=== PATIENT | female | born 1955 | race Hispanic/Latino ===

== ENCOUNTER 2018-07-30 14:00 | Inpatient (IN) | payer OTHER ==
[2018-07-30] VITALS (15 sets, daily range): BP systolic 129–171; BP diastolic 57–80
[~2018-07-30] VITALS: Ht 152.4 cm; Wt 105.7 kg
--- NOTE | 2018-07-30 01:37 | NUR ---
LATE ENTRY. PATIENT RECEIVED INTUBATED AND SEDATED ON PROPOFOL AND FENTANYL. UPPER LIP SWELLING NOTED. NO FAMILY AT THE BEDSIDE AT THIS TIME. Addendum: 08/01/18 at 0140 by KENZIE SANDERS RN RN INCORRECT TIME 07/30/2018 1930 CORRECT TIME.
[~2018-07-30 14:00] MED LIST: ATOR40TA69 PO; INSU100I3 SQ; INSU100V12 SQ; LEVO50TA11 PO; LISI40TA4 PO; METF-526 PO; SUCCINYLCHOLINE CHLORIDE 20 MG/ML 10 ML VIAL IVP ONE
[2018-07-30] MEDS ORDERED: MAGNESIUM 2GM PREMIX 50ML 50 ML IV ONE (14:29)
[2018-07-30 14:41] LABS: BASOPHILS % (AUTO) 0.4 % (0.0-5.0); EOSINOPHILS % (AUTO) 1.1 % (0.0-8.0); HEMATOCRIT 40.4 % (36-48); MEAN CORPUSCULAR HGB CONC 33.7 g/dL (32.0-36.0); MEAN CORPUSCULAR VOLUME 83.2 fL (79-99); MONOCYTES % (AUTO) 3.2 % (3.0-13.0); NEUTROPHILS % (AUTO) 73.3 % (40.0-77.0); NUCLEATED RED BLOOD CELLS 0.1 % (0.0-0.19); PLATELET COUNT (AUTO) 258 K/uL (130-400); RED BLOOD CELL COUNT(AUTO) 4.85 MIL/uL (4.00-5.50); RED CELL DISTRIBUTION WIDTH 14.9 % (11.0-15.5); WHITE BLOOD COUNT (AUTO) 13.9 K/uL (4.8-10.8)
[2018-07-30] MEDS ORDERED: PROPOFOL 1000 MG/100 ML 100 ML IV ONE ×2 (14:44→16:33)
[2018-07-30] MEDS ORDERED: KETAMINE HCL 100 MG/ML 5ML VIAL IJ ONE (14:45)
[2018-07-30 14:46] LABS: ABG BASE EXCESS 0.2 mmol/L (-2.0-3.0); ABG HCO3 25.3 mmol/L (21.0-28.0); ABG OXYGEN SATURATION 96.7 % (95.0-99.0); ABG PCO2 43 mmHg (32-45)
[2018-07-30 14:47] LABS: INR 0.93 (0.85-1.15); PARTIAL THROMBOPLASTIN TIME 25.2 SEC (26.3-35.5); PROTHROMBIN TIME 9.8 SEC (9.6-11.6)
[2018-07-30 14:53] LABS: CREATININE 0.9 mg/dL (0.5-1.5); POTASSIUM 4.6 mmol/L (3.5-5.1)
[2018-07-30 14:57] LABS: ALBUMIN 2.9 g/dL (3.5-5.0); BILIRUBIN,TOTAL 0.4 mg/dL (0.2-1.0); TOTAL PROTEIN, SERUM 7.1 g/dL (6.0-8.3)
[2018-07-30] MEDS ORDERED: SODIUM CHLORIDE 0.9% 1000ML 1,000 ML IV ONE (14:57)
[2018-07-30] MEDS ORDERED: ONDANSETRON HCL 4 MG/2 ML VIAL IV PRN (15:30)
[2018-07-30] MEDS ORDERED: MORPHINE SULFATE 2 MG/ML 1ML SYG IV PRN (15:30)
[2018-07-30] MEDS ORDERED: MORPHINE SULFATE 4 MG/1ML SYG IV PRN (15:30)
[2018-07-30 15:40] LABS: APPEARANCE,URINE SL CLOUDY (CLEAR); BILIRUBIN,URINE NEGATIVE (NEGATIVE); COLOR,URINE YELLOW (YELLOW); GLUCOSE, URINE (UA) >=1000 mg/dL (NEGATIVE); KETONES,URINE NEGATIVE (NEGATIVE); LEUKOCYTE ESTERASE ,URINE NEGATIVE (NEGATIVE); NITRATE,URINE POSITIVE (NEGATIVE); OCCULT BLOOD,URINE MODERATE (NEGATIVE); PROTEIN,URINE >=300 mg/dL (NEGATIVE); UROBILINOGEN,URINE 0.2 mg/dL (0.2-1.0)
[2018-07-30 16:04] LABS: BACTERIA,URINE Moderate /HPF (None Seen)
[2018-07-30 16:05] LABS: SQUAMOUS EPITHELIAL CELL,UR Rare /HPF (0-2)
[2018-07-30 16:44] LABS: ABG BASE EXCESS 1.3 mmol/L (-2.0-3.0); ABG HCO3 25.3 mmol/L (21.0-28.0); ABG OXYGEN SATURATION 98.9 % (95.0-99.0); ABG PCO2 38 mmHg (32-45)
[2018-07-30] MEDS ORDERED: HYDRALAZINE HCL 20 MG/ML VIAL ONE (17:26)
[2018-07-30] MEDS ORDERED: ZOSYN 3.375GM+NS 50ML 50 ML IV ONE (17:38)
[2018-07-30] MEDS ORDERED: DiphenhydrAMINE HCL 50 MG/ML VIAL ONE (17:38)
[2018-07-30] MEDS ORDERED: METHYLPREDNISOLONE SOD SUCC 40MG/ML 1ML ONE (17:38)
[2018-07-30 18:25] LABS: CREATININE 0.9 mg/dL (0.5-1.5); POTASSIUM 5.2 mmol/L (3.5-5.1)
--- NOTE | 2018-07-30 18:45 | NUR ---
PATIENT ARRIVED TO UNIT.
[2018-07-30] MEDS: SODIUM CHLORIDE 0.9% 1000ML 1,000 ML IV SCH (19:21)
[2018-07-30] MEDS: METHYLPREDNISOLONE SOD SUCC 40MG/ML 1ML IVP SCH (19:24)
[2018-07-30] MEDS: DiphenhydrAMINE HCL 50 MG/ML VIAL IVP SCH (19:24)
[2018-07-30] MEDS ORDERED: PROPOFOL 1000 MG/100 ML IV PRN (19:30)
[2018-07-30] MEDS: PROPOFOL 1000 MG/100 ML 100 ML IV PRN (20:08)
[2018-07-30] MEDS: FAMOTIDINE/PF 20 MG/2 ML VIAL IV SCH (20:10)
[2018-07-30] MEDS: HEPARIN SODIUM 5000UNIT/ML 1ML VIAL SQ SCH (20:13)
[2018-07-30] MEDS: INSULIN GLARGINE 100 UNITS/ML 10 ML VIAL SQ SCH (20:15)
[2018-07-30] MEDS: HYDRALAZINE HCL 20 MG/ML VIAL IV PRN (20:42)
[2018-07-30] MEDS ORDERED: ZOSYN 3.375GM+NS 50ML 50 ML IV SCH (21:00)
[2018-07-30] MEDS ORDERED: DEXTROSE 50%-WATER 50 ML DISP.SYRIN IV PRN (21:45)
[2018-07-30] MEDS ORDERED: GLUCAGON 1MG KIT 1 MG ML IM PRN (21:45)
[2018-07-30 23:05] LABS: CREATININE 0.9 mg/dL (0.5-1.5); POTASSIUM 4.7 mmol/L (3.5-5.1)
[2018-07-30] MEDS: INSULIN HUMULIN R 100 UNIT/ML 3ML SQ SCH (23:31)
[2018-07-31] VITALS (35 sets, daily range): BP systolic 128–189; BP diastolic 53–105
[2018-07-31] MEDS: PROPOFOL 1000 MG/100 ML 100 ML IV PRN ×5 (00:36→19:21)
[2018-07-31] MEDS: ZOSYN 3.375GM+NS 50ML 50 ML IV SCH ×3 (02:19→17:24)
[2018-07-31] MEDS: DiphenhydrAMINE HCL 50 MG/ML VIAL IVP SCH ×3 (02:36→19:22)
[2018-07-31] MEDS: METHYLPREDNISOLONE SOD SUCC 40MG/ML 1ML IVP SCH ×3 (02:36→19:22)
[2018-07-31 03:41] LABS: BASOPHILS % (AUTO) 0.2 % (0.0-5.0); HEMATOCRIT 36.9 % (36-48); LYMPHOCYTES % (AUTO) 11.3 % (21.0-51.0); MEAN CORPUSCULAR HEMOGLOBIN 26.7 pg (27.0-33.0); MEAN CORPUSCULAR HGB CONC 32.3 g/dL (32.0-36.0); MEAN CORPUSCULAR VOLUME 82.7 fL (79-99); MONOCYTES % (AUTO) 1.4 % (3.0-13.0); NEUTROPHILS % (AUTO) 87.1 % (40.0-77.0); PLATELET COUNT (AUTO) 252 K/uL (130-400); RED BLOOD CELL COUNT(AUTO) 4.45 MIL/uL (4.00-5.50); RED CELL DISTRIBUTION WIDTH 14.7 % (11.0-15.5); WHITE BLOOD COUNT (AUTO) 11.4 K/uL (4.8-10.8)
[2018-07-31 03:46] LABS: POTASSIUM 4.2 mmol/L (3.5-5.1)
[2018-07-31] MEDS: SODIUM CHLORIDE 0.9% 1000ML 1,000 ML IV SCH ×3 (04:21→23:16)
[2018-07-31 04:52] LABS: ABG BASE EXCESS -1.3 mmol/L (-2.0-3.0); ABG HCO3 20.1 mmol/L (21.0-28.0); ABG OXYGEN SATURATION 97.8 % (95.0-99.0); ABG PCO2 26 mmHg (32-45)
[2018-07-31] MEDS: INSULIN HUMULIN R 100 UNIT/ML 3ML SQ SCH ×3 (06:16→17:43)
[2018-07-31] MEDS: FAMOTIDINE/PF 20 MG/2 ML VIAL IV SCH ×2 (08:16→20:45)
[2018-07-31] MEDS: HEPARIN SODIUM 5000UNIT/ML 1ML VIAL SQ SCH ×2 (08:23→20:49)
[2018-07-31] MEDS ORDERED: PENT400T12 PO (09:09)
--- NOTE | 2018-07-31 13:53 | NUR ---
DC PLAN VISITED WITH PATIENT. PATIENT LIVES WITH SPOUSE. INDEPENDENT ABLE TO PERFORM ADL'S. PATIENT HAS NO SERVICES OR DME'S. USES A CANE AT HOME. FEELS SAFE TO RETURN HOME. AT THIS TIME PATIENT IS VENTED AND IN CRITICAL CONDITION. Addendum: 07/31/18 at 1354 by RICARDO VILLARREAL RN CM Amended: Links added.
--- NOTE | 2018-07-31 15:00 | NUR ---
PROPOFOL IV TUBING CHANGED.
[2018-07-31] MEDS: INSULIN GLARGINE 100 UNITS/ML 10 ML VIAL SQ SCH (20:50)
[2018-08-01] VITALS (29 sets, daily range): BP systolic 130–221; BP diastolic 47–90
[2018-08-01] MEDS: INSULIN HUMULIN R 100 UNIT/ML 3ML SQ SCH ×5 (00:26→23:41)
[2018-08-01] MEDS: PROPOFOL 1000 MG/100 ML 100 ML IV PRN ×6 (01:23→23:45)
[2018-08-01] MEDS: ZOSYN 3.375GM+NS 50ML 50 ML IV SCH ×3 (01:24→17:53)
--- NOTE | 2018-08-01 01:41 | NUR ---
STATUS PATIENT TURNED, BATHED AND REPOSITIONED. TOLERATED ACTIVITY WELL. AWAKENS WITH ACTIVITY. PROPOFOL TUBING CHANGED.
[2018-08-01] MEDS: HYDRALAZINE HCL 20 MG/ML VIAL IV PRN ×3 (02:12→21:08)
[2018-08-01] MEDS: METHYLPREDNISOLONE SOD SUCC 40MG/ML 1ML IVP SCH ×3 (03:08→19:50)
[2018-08-01] MEDS: DiphenhydrAMINE HCL 50 MG/ML VIAL IVP SCH ×3 (03:08→19:50)
[2018-08-01 04:03] LABS: HEMATOCRIT 36.1 % (36-48); MEAN CORPUSCULAR HEMOGLOBIN 27.9 pg (27.0-33.0); MEAN CORPUSCULAR HGB CONC 33.8 g/dL (32.0-36.0); MEAN CORPUSCULAR VOLUME 82.7 fL (79-99); PLATELET COUNT (AUTO) 251 K/uL (130-400); RED BLOOD CELL COUNT(AUTO) 4.36 MIL/uL (4.00-5.50); RED CELL DISTRIBUTION WIDTH 15.3 % (11.0-15.5); WHITE BLOOD COUNT (AUTO) 19.4 K/uL (4.8-10.8)
[2018-08-01 04:07] LABS: CREATININE 1.2 mg/dL (0.5-1.5); POTASSIUM 4.1 mmol/L (3.5-5.1)
[2018-08-01 04:59] LABS: ABG BASE EXCESS -3.9 mmol/L (-2.0-3.0); ABG HCO3 17.6 mmol/L (21.0-28.0); ABG OXYGEN SATURATION 97.2 % (95.0-99.0); ABG PCO2 24 mmHg (32-45)
[2018-08-01] MEDS: SODIUM CHLORIDE 0.9% 1000ML 1,000 ML IV SCH ×2 (08:01→17:27)
[2018-08-01] MEDS: FAMOTIDINE/PF 20 MG/2 ML VIAL IV SCH ×2 (08:01→19:49)
[2018-08-01] MEDS: HEPARIN SODIUM 5000UNIT/ML 1ML VIAL SQ SCH ×2 (08:03→19:50)
--- NOTE | 2018-08-01 08:30 | NUR ---
Patient was weaned off sedation and placed CPAP 10/5 with FIO2 @30% at 0830. Leak test revealed that patient was still able to take in tidal volumes of 4 to 500, which indicates that there is still swelling around airway. Patient's vital signs were tolerating well but patient was very anxious. Patient was given 2mg of morphine for throat pain. Patient was also restarted on small dose of fentanyl to help with throat discomfort. Despite these interventions patient is still anxious trying to remove her mittens and et tube. Et tube will not be dc'd at this time because of patients swelling. Patient was placed back on assist control settings and sedation at 0944.
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
[2018-08-01] MEDS: FENTANYL 2500MCG+NS 250ML 250 ML IV PRN (19:26)
[2018-08-01] MEDS: INSULIN GLARGINE 100 UNITS/ML 10 ML VIAL SQ SCH (19:56)
[2018-08-02] VITALS (39 sets, daily range): BP systolic 120–194; BP diastolic 27–99
[2018-08-02] MEDS: ZOSYN 3.375GM+NS 50ML 50 ML IV SCH ×3 (02:13→16:54)
[2018-08-02] MEDS: METHYLPREDNISOLONE SOD SUCC 40MG/ML 1ML IVP SCH ×2 (02:41→10:06)
[2018-08-02] MEDS: DiphenhydrAMINE HCL 50 MG/ML VIAL IVP SCH ×2 (02:41→10:06)
[2018-08-02 03:56] LABS: BASOPHILS % (AUTO) 0.1 % (0.0-5.0); HEMATOCRIT 35.1 % (36-48); LYMPHOCYTES % (AUTO) 7.4 % (21.0-51.0); MEAN CORPUSCULAR HEMOGLOBIN 27.5 pg (27.0-33.0); MEAN CORPUSCULAR VOLUME 83.5 fL (79-99); NEUTROPHILS % (AUTO) 89.5 % (40.0-77.0); NUCLEATED RED BLOOD CELLS 0.1 % (0.0-0.19); PLATELET COUNT (AUTO) 252 K/uL (130-400); RED CELL DISTRIBUTION WIDTH 15.8 % (11.0-15.5); WHITE BLOOD COUNT (AUTO) 15.6 K/uL (4.8-10.8)
[2018-08-02 04:07] LABS: CREATININE 1.1 mg/dL (0.5-1.5); POTASSIUM 3.8 mmol/L (3.5-5.1)
[2018-08-02 04:15] LABS: HEMOGLOBIN A1C 10.9 % (4.0-6.0)
[2018-08-02] MEDS: HYDRALAZINE HCL 20 MG/ML VIAL IV PRN ×2 (04:31→13:10)
[2018-08-02] MEDS: INSULIN HUMULIN R 100 UNIT/ML 3ML SQ SCH ×3 (05:15→17:51)
[2018-08-02] MEDS: PROPOFOL 1000 MG/100 ML 100 ML IV PRN ×4 (07:54→19:40)
[2018-08-02] MEDS: FAMOTIDINE/PF 20 MG/2 ML VIAL IV SCH ×2 (07:54→20:55)
[2018-08-02] MEDS: HEPARIN SODIUM 5000UNIT/ML 1ML VIAL SQ SCH ×2 (08:32→20:57)
[2018-08-02] MEDS ORDERED: PROPOFOL 10 MG/ML 20ML VIAL IV ONE (12:34)
[2018-08-02] MEDS ORDERED: EPHEDRINE SULFATE 50 MG/ML AMPULE ONE (12:34)
--- NOTE | 2018-08-02 12:43 | NUR ---
ENDOSCOPY TEAM AT BEDSIDE.
--- NOTE | 2018-08-02 15:15 | NUR ---
BRONCHOSCOPY TEAM SETTING UP AT BEDSIDE. DR. PARISI AT BEDSIDE. MD SPOKE TO DAUGHTER ABOUT PROCEDURE.
[2018-08-02] MEDS: MIDAZOLAM 100MG-0.9% NS 100ML 100 ML IV PRN (17:00)
--- NOTE | 2018-08-02 18:40 | NUR ---
DR. DENTON VISITED AND ASSESSED PATIENT. UPDATED ON PATIENT LABS AND STATUS.
[2018-08-02] MEDS ORDERED: ZOSYN 3.375GM+NS 50ML 50 ML IV SCH (19:30)
--- NOTE | 2018-08-02 19:30 | NUR ---
ASSESSMENT PT INTUBATED WITH 7.5, 18 AT THE LIP, VENT SETTING AC-14-40%-450-PEEP 8. SEDATED WITH FENTANYL, PROPOFOL AND VERSED, INFUSING WITHOUT DIFFICULTY. FAMILY AT BEDSIDE. 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 OGT TO L.I.W.S WITH GREEN LIQUID NOTED, VENEGAS CATH 18FR SANTY/GREEN COLOR WITH SEDIMENT TO BSD. SCD IN PLACE. PARAMETER ON BEDSIDE MONITOR REVIEWED AND ADJUSTED, CALLBELL REVIEWED AND WITHIN REACH. WHITE BOARD UP-DATED. ASSESSMENT COMPLETED, SEE FLOW SHEET.
[2018-08-02] MEDS: DEXAMETHASONE SOD PHOSPHATE 4 MG/ML 1ML VIAL IVP SCH (20:55)
[2018-08-02] MEDS: LACTATED RINGERS 1000ML 1,000 ML IV SCH (20:55)
[2018-08-02] MEDS: INSULIN GLARGINE 100 UNITS/ML 10 ML VIAL SQ SCH (20:56)
[2018-08-02] MEDS ORDERED: DEXAMETHASONE SOD PHOSPHATE 4 MG/ML 1ML VIAL IVP SCH (21:00)
--- NOTE | 2018-08-02 21:00 | NUR ---
IV LINES IV LINES CHANGED
[2018-08-02] MEDS: FENTANYL 2500MCG+NS 250ML 250 ML IV PRN (21:03)
--- NOTE | 2018-08-02 23:00 | NUR ---
ASSESSMENT PT INTUBATED WITH 7.5, 18 AT THE LIP, VENT SETTING AC-14-30%-450-PEEP 8. SEDATED WITH FENTANYL, PROPOFOL AND VERSED, INFUSING WITHOUT DIFFICULTY. ANTHONY VANN AT BEDSIDE. 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 OGT TO L.I.W.S WITH GREEN LIQUID NOTED, VENEGAS CATH 18FR SANTY/GREEN COLOR WITH SEDIMENT TO BSD. SCD IN PLACE BILATERALLY. CALLBELL WITHIN REACH. WHITE BOARD UP-DATED. ASSESSMENT COMPLETED, SEE FLOW SHEET.
[2018-08-03] VITALS (27 sets, daily range): BP systolic 125–190; BP diastolic 40–72
[2018-08-03] MEDS: ZOSYN 3.375GM+NS 50ML 50 ML IV SCH ×3 (02:04→18:11)
[2018-08-03 03:29] LABS: HEMATOCRIT 34.7 % (36-48); MEAN CORPUSCULAR HEMOGLOBIN 28.4 pg (27.0-33.0); MEAN CORPUSCULAR HGB CONC 33.7 g/dL (32.0-36.0); MEAN CORPUSCULAR VOLUME 84.1 fL (79-99); PLATELET COUNT (AUTO) 236 K/uL (130-400); RED BLOOD CELL COUNT(AUTO) 4.12 MIL/uL (4.00-5.50); RED CELL DISTRIBUTION WIDTH 15.6 % (11.0-15.5); WHITE BLOOD COUNT (AUTO) 10.1 K/uL (4.8-10.8)
[2018-08-03 03:42] LABS: CREATININE 0.9 mg/dL (0.5-1.5); MAGNESIUM 2.1 mg/dL (1.80-2.40); PHOSPHORUS 3.7 mg/dL (2.5-4.9); POTASSIUM 4.1 mmol/L (3.5-5.1)
[2018-08-03 03:43] LABS: INR 0.94 (0.85-1.15); PARTIAL THROMBOPLASTIN TIME 27.5 SEC (26.3-35.5); PROTHROMBIN TIME 9.9 SEC (9.6-11.6)
--- NOTE | 2018-08-03 04:05 | NUR ---
ASSESSMENT PT INTUBATED WITH 7.5, 18 AT THE LIP, VENT SETTING AC-14-30%-450-PEEP 8. SEDATED WITH FENTANYL, PROPOFOL, VERSED AND INFUSING WITHOUT DIFFICULTY. ANTHONY VANN AT BEDSIDE. 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 OGT TO L.I.W.S WITH GREEN LIQUID NOTED, VENEGAS CATH 18FR SANTY/GREEN COLOR WITH SEDIMENT TO BSD. SCD IN PLACE BILATERALLY. CALLBELL WITHIN REACH. ASSESSMENT COMPLETED, SEE FLOW SHEET.
--- NOTE | 2018-08-03 06:00 | NUR ---
PROPOFOL TUBING CHANGED
[2018-08-03] MEDS: LACTATED RINGERS 1000ML 1,000 ML IV SCH ×2 (06:18→16:40)
[2018-08-03] MEDS: INSULIN HUMULIN R 100 UNIT/ML 3ML SQ SCH ×4 (06:18→18:11)
[2018-08-03] MEDS: MIDAZOLAM 100MG-0.9% NS 100ML 100 ML IV PRN ×2 (06:19→20:20)
[2018-08-03] MEDS: PROPOFOL 1000 MG/100 ML 100 ML IV PRN ×2 (06:24→20:19)
[2018-08-03] MEDS: BUDESONIDE 0.5 MG/2 ML INH IH SCH ×2 (06:45→18:18)
[2018-08-03] MEDS: FAMOTIDINE/PF 20 MG/2 ML VIAL IV SCH ×2 (08:15→21:09)
[2018-08-03] MEDS: DEXAMETHASONE SOD PHOSPHATE 4 MG/ML 1ML VIAL IVP SCH ×2 (08:15→21:10)
[2018-08-03] MEDS: HYDRALAZINE HCL 20 MG/ML VIAL IV PRN ×3 (08:16→18:36)
[2018-08-03] MEDS: HEPARIN SODIUM 5000UNIT/ML 1ML VIAL SQ SCH ×2 (08:17→21:16)
--- NOTE | 2018-08-03 11:49 | NUR ---
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 COSME Shabazz obtaining consent for PICC line placement. No bowel movements recorded. Recommendations: Continue NPO until medically feasible to advance diet. TPN recommendations via PICC line. Clinimix 07/24 (premixed): 65ml/hr with intralipid infusion every other day --. 10ml Adult MVI Recommend monitoring lipid panel and LFTs TPN to provide 1560kcals, 78g PRO, Intralipid to provide 500kcals. -- Addendum: 08/03/18 at [address]REZ RD RD Amended: Links added.
[2018-08-03] MEDS: ALBUTEROL SULFATE 0.083% 2.5 MG/3 ML INH IH SCH ×3 (14:14→21:17)
[2018-08-03] MEDS: M V I IV SCH (16:41)
[2018-08-03] MEDS: CLINIMIX E IV SCH (16:41)
[2018-08-03] MEDS: FENTANYL 2500MCG+NS 250ML 250 ML IV PRN (18:16)
--- NOTE | 2018-08-03 19:34 | NUR ---
ASSESSMENT REPORT RECEIVED . PT INTUBATED WITH 7.5, 24 CM AT THE LIP, VENT SETTING AC RATE 14/TV 450/PEEP 8/FIO2 30%. SEDATED WITH FENTANYL, PROPOFOL, VERSED AND INFUSING THROUGH PICC LINE RUE. LR AND TPN INFUSING . PUPILS: LEFT 4MM FIXED. 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 OGT TO L.I.W.S WITH GREEN LIQUID NOTED, VENEGAS CATH 18FR SANTY/GREEN COLOR WITH SEDIMENT TO BSD. SCD IN PLACE BILATERALLY. PEDAL AND RADIAL PULSES WEAK -CONFIRMED WITH HAND HELD DOPPLER. AT BEDSIDE. CALL GODOY WITHIN REACH. ASSESSMENT COMPLETED, SEE FLOW SHEET.
[2018-08-03] MEDS: INSULIN GLARGINE 100 UNITS/ML 10 ML VIAL SQ SCH (21:29)
--- NOTE | 2018-08-03 22:16 | NUR ---
APRESOLINE 10 MG IV GIVEN FOR BP 169/96 Addendum: 08/04/18 at 0610 by SILVER VARGHESE RN RN WRONG PATIENT
--- NOTE | 2018-08-03 22:48 | NUR ---
BP IMPROVEMENT 140/73 Addendum: 08/04/18 at 0610 by SILVER VARGHESE RN RN WRONG PATIENT
--- NOTE | 2018-08-03 23:00 | NUR ---
PATIENT RE-ASSESSED, RESTING QUIETLY . INTUBATED AND SEDATED. RADIAL AND PEDAL PULSES WEAK PALPABLE. EXTREMITIES X 4 ELEVATED WITH PILLOWS. EDEMA AND BLISTERS NOTED TO L ARM . AT BEDSIDE.
[2018-08-04] VITALS (28 sets, daily range): BP systolic 137–168; BP diastolic 49–74
[2018-08-04] MEDS: INSULIN HUMULIN R 100 UNIT/ML 3ML SQ SCH ×3 (00:38→08:27)
[2018-08-04] MEDS: HYDRALAZINE HCL 20 MG/ML VIAL IV PRN (01:37)
[2018-08-04] MEDS: ZOSYN 3.375GM+NS 50ML 50 ML IV SCH ×3 (01:37→17:39)
--- NOTE | 2018-08-04 01:37 | NUR ---
APRESOLINE 10 MG IV GIVEN FOR BP 172/65
[2018-08-04] MEDS: LACTATED RINGERS 1000ML 1,000 ML IV SCH ×5 (01:38→20:13)
[2018-08-04] MEDS: PROPOFOL 1000 MG/100 ML 100 ML IV PRN ×3 (01:54→19:58)
[2018-08-04] MEDS: ALBUTEROL SULFATE 0.083% 2.5 MG/3 ML INH IH SCH ×5 (01:58→18:17)
--- NOTE | 2018-08-04 02:00 | NUR ---
BP IMPROVEMENT 150/49.
--- NOTE | 2018-08-04 03:00 | NUR ---
PATIENT RE-ASSESSED, RESTING QUIETLY . INTUBATED AND SEDATED. RADIAL AND PEDAL PULSES X 4 CONFIRMED WITH DOPPLER. X 4 EXTREMITIES ELEVATED WITH PILLOWS. BLISTERS NOTED TO L ARM . AT BEDSIDE.
[2018-08-04 05:00] LABS: HEMATOCRIT 36.5 % (36-48); LYMPHOCYTES % (AUTO) 5.4 % (21.0-51.0); MEAN CORPUSCULAR HEMOGLOBIN 26.8 pg (27.0-33.0); MEAN CORPUSCULAR HGB CONC 31.8 g/dL (32.0-36.0); MEAN CORPUSCULAR VOLUME 84.3 fL (79-99); MONOCYTES % (AUTO) 2.2 % (3.0-13.0); NEUTROPHILS % (AUTO) 92.4 % (40.0-77.0); PLATELET COUNT (AUTO) 244 K/uL (130-400); RED BLOOD CELL COUNT(AUTO) 4.32 MIL/uL (4.00-5.50); RED CELL DISTRIBUTION WIDTH 15.9 % (11.0-15.5)
[2018-08-04 05:17] LABS: INR 0.91 (0.85-1.15); PARTIAL THROMBOPLASTIN TIME 27.1 SEC (26.3-35.5); PROTHROMBIN TIME 9.6 SEC (9.6-11.6)
[2018-08-04 05:34] LABS: ALBUMIN 1.9 g/dL (3.5-5.0); BILIRUBIN,TOTAL 0.2 mg/dL (0.2-1.0); MAGNESIUM 2.3 mg/dL (1.80-2.40); POTASSIUM 4.2 mmol/L (3.5-5.1); TOTAL PROTEIN, SERUM 5.6 g/dL (6.0-8.3)
[2018-08-04] MEDS: BUDESONIDE 0.5 MG/2 ML INH IH SCH ×2 (07:53→18:17)
[2018-08-04] MEDS: DEXAMETHASONE SOD PHOSPHATE 4 MG/ML 1ML VIAL IVP SCH ×2 (08:26→20:27)
[2018-08-04] MEDS: FAMOTIDINE/PF 20 MG/2 ML VIAL IV SCH ×2 (08:26→20:27)
[2018-08-04] MEDS: HEPARIN SODIUM 5000UNIT/ML 1ML VIAL SQ SCH ×2 (08:28→20:29)
[2018-08-04] MEDS ORDERED: LACTATED RINGERS 1000ML IV ONE (10:45)
[2018-08-04] MEDS: INSULIN REGULAR, HUMAN 3ML 100 UNIT in SODIUM CHLORIDE 0.9% 99 ML IV PRN ×2 (11:40)
[2018-08-04] MEDS ORDERED: INSULIN HUMULIN R 100 UNIT/ML 3ML SQ SCH (12:00)
[2018-08-04] MEDS: M V I IV SCH (16:35)
[2018-08-04] MEDS: CLINIMIX E IV SCH (16:35)
[2018-08-04] MEDS: FENTANYL 2500MCG+NS 250ML 250 ML IV PRN (18:13)
[2018-08-04] MEDS: MIDAZOLAM 100MG-0.9% NS 100ML 100 ML IV PRN (18:13)
--- NOTE | 2018-08-04 19:24 | NUR ---
ASSESSMENT REPORT RECEIVED . PT INTUBATED WITH 7.5, 24 CM AT THE LIP, VENT SETTING AC RATE 14/TV 450/PEEP 8/FIO2 30%. SEDATED WITH FENTANYL, PROPOFOL, VERSED AND INFUSING THROUGH PICC LINE RUE. LR AND TPN AND INSULIN DRIP INFUSING . PUPILS: LEFT 4MM FIXED. 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 OGT TO L.I.W.S WITH GREEN LIQUID NOTED, VENEGAS CATH 18FR SANTY/GREEN COLOR WITH SEDIMENT TO BSD. SCD IN PLACE BILATERALLY. PEDAL AND RADIAL PULSES WEAK -CONFIRMED WITH HAND HELD DOPPLER. AT BEDSIDE. TEMPERATURE 95.9 WARMING BLANKET APPLIED. CALL GODOY WITHIN REACH. ASSESSMENT COMPLETED, SEE FLOW SHEET.
[2018-08-04] MEDS: INSULIN GLARGINE 100 UNITS/ML 10 ML VIAL SQ SCH (20:28)
[2018-08-05] VITALS (40 sets, daily range): BP systolic 58–226; BP diastolic 23–108
[2018-08-05] MEDS: ALBUTEROL SULFATE 0.083% 2.5 MG/3 ML INH IH SCH ×5 (00:11→23:06)
[2018-08-05] MEDS: ZOSYN 3.375GM+NS 50ML 50 ML IV SCH ×3 (01:25→19:50)
[2018-08-05] MEDS: PROPOFOL 1000 MG/100 ML 100 ML IV PRN ×3 (01:25→22:44)
[2018-08-05] MEDS: HYDRALAZINE HCL 20 MG/ML VIAL IV PRN ×3 (01:34→22:43)
--- NOTE | 2018-08-05 01:34 | NUR ---
BP 172/67, APRESOLINE 10 MG IV GIVEN
--- NOTE | 2018-08-05 03:39 | NUR ---
BP IMPROVED 143/59
[2018-08-05 04:18] LABS: BASOPHILS % (AUTO) 0.3 % (0.0-5.0); HEMATOCRIT 33.5 % (36-48); LYMPHOCYTES % (AUTO) 10.3 % (21.0-51.0); MEAN CORPUSCULAR HGB CONC 33.3 g/dL (32.0-36.0); MEAN CORPUSCULAR VOLUME 84.1 fL (79-99); NEUTROPHILS % (AUTO) 86.4 % (40.0-77.0); NUCLEATED RED BLOOD CELLS 0.1 % (0.0-0.19); PLATELET COUNT (AUTO) 208 K/uL (130-400); RED BLOOD CELL COUNT(AUTO) 3.98 MIL/uL (4.00-5.50); RED CELL DISTRIBUTION WIDTH 15.5 % (11.0-15.5); WHITE BLOOD COUNT (AUTO) 7.7 K/uL (4.8-10.8)
[2018-08-05 04:36] LABS: ALBUMIN 1.6 g/dL (3.5-5.0); BILIRUBIN,TOTAL 0.2 mg/dL (0.2-1.0); CREATININE 0.8 mg/dL (0.5-1.5); PHOSPHORUS 2.8 mg/dL (2.5-4.9); POTASSIUM 3.9 mmol/L (3.5-5.1); TOTAL PROTEIN, SERUM 4.8 g/dL (6.0-8.3)
[2018-08-05] MEDS: LACTATED RINGERS 1000ML 1,000 ML IV SCH ×2 (05:59→15:57)
[2018-08-05] MEDS: BUDESONIDE 0.5 MG/2 ML INH IH SCH ×2 (07:19→18:37)
[2018-08-05] MEDS: FAMOTIDINE/PF 20 MG/2 ML VIAL IV SCH ×2 (08:24→20:21)
[2018-08-05] MEDS: DEXAMETHASONE SOD PHOSPHATE 4 MG/ML 1ML VIAL IVP SCH ×2 (08:24→20:21)
[2018-08-05] MEDS: HEPARIN SODIUM 5000UNIT/ML 1ML VIAL SQ SCH ×2 (08:25→20:23)
--- NOTE | 2018-08-05 09:30 | NUR ---
SPOUSE: HAS REMAINED AT BSD ALL NIGHT - THRU MANAGER OF ENGINEERING ADVISED OF CURRENT STATUS AND PLAN OF CARE. QUESTIONS ANSWERED.
--- NOTE | 2018-08-05 12:00 | NUR ---
RESTLESS: EYES OPEN WITHOUT TRACKING - EYES ROLLED BACK AND NECK HYPEREXTENDED - MOVES ARMS AND LEGS WEAKLY BUT NOT TO COMMAND - NO ATTEMPT TO TRACK OR FOLLOW COMMANDS OF FAMILY MEMBERS EITHER.
[2018-08-05] MEDS: FAT EMULSIONS 20% 250ML 250 ML IV SCH (12:14)
--- NOTE | 2018-08-05 14:22 | NUR ---
Nutrition f/u: Pt continues NPO, s/p PICC line placed. Recommend continuation of Alternate means of nutrition via PICC line. TPN @ 65 ml/hr. RD to continue monitoring pt's nutritional status. Consult received for TF recommendation. As per norma Pritchett feeds order made by Dr Lewis and will closely monitor tolerance. TF recommendations made and left in pt's chart. Addendum: 08/05/18 at 1435 [address]Z [address] RD Amended: Links added.
--- NOTE | 2018-08-05 15:55 | NUR ---
CPAP: ONLY TOLERATED 20 MINUTES DUE TO HTN - NOTE ON V/S RECORD B/P HAS BEEN DIFFICULT DIFFICULT TO ASCERTAIN B/C ONE SITE SHOWS HTN THEN RECHECK IS UNABLE TO ASCERTAIN -SO SITE CHANGED AND WILL GET A READING FOLLOWED BY ONE THAT DOES NOT NUCLEAR FUELS RESEARCH ENGINEER - TREATED FOR HTN WITH APRESOLINE AND RT NOTIFIED TO STOP CPAP.
--- NOTE | 2018-08-05 18:43 | NUR ---
At this time I did check for air leak I disinflated the ETT cuff and there is a good leak good air flow. Addendum: 08/05/18 at 1850 by CHAY DIAL RT Amended: Links added.
--- NOTE | 2018-08-05 18:45 | NUR ---
ETT AIR LEAK TEST BY RT. NOTES AIR FLOW.
[2018-08-05] MEDS: CLINIMIX E IV SCH (19:00)
[2018-08-05] MEDS: M V I IV SCH (19:00)
[2018-08-05] MEDS ORDERED: [UNRECOGNIZED DRUG - MIXTURE] IV ONE ×7 (20:00)
[2018-08-05] MEDS: INSULIN GLARGINE 100 UNITS/ML 10 ML VIAL SQ SCH (20:24)
[2018-08-06] VITALS (28 sets, daily range): BP systolic 133–188; BP diastolic 52–85
[2018-08-06] MEDS: FENTANYL 2500MCG+NS 250ML 250 ML IV PRN (00:05)
[2018-08-06] MEDS: ZOSYN 3.375GM+NS 50ML 50 ML IV SCH ×3 (01:11→18:21)
[2018-08-06] MEDS: LACTATED RINGERS 1000ML 1,000 ML IV SCH ×3 (02:03→21:49)
[2018-08-06 05:21] LABS: BASOPHILS % (AUTO) 0.5 % (0.0-5.0); EOSINOPHILS % (AUTO) 0.1 % (0.0-8.0); HEMATOCRIT 37.7 % (36-48); LYMPHOCYTES % (AUTO) 11.1 % (21.0-51.0); MEAN CORPUSCULAR HEMOGLOBIN 27.3 pg (27.0-33.0); MEAN CORPUSCULAR HGB CONC 32.2 g/dL (32.0-36.0); MEAN CORPUSCULAR VOLUME 84.9 fL (79-99); MONOCYTES % (AUTO) 7.2 % (3.0-13.0); NEUTROPHILS % (AUTO) 81.1 % (40.0-77.0); PLATELET COUNT (AUTO) 304 K/uL (130-400); RED BLOOD CELL COUNT(AUTO) 4.44 MIL/uL (4.00-5.50); RED CELL DISTRIBUTION WIDTH 15.8 % (11.0-15.5); WHITE BLOOD COUNT (AUTO) 15.2 K/uL (4.8-10.8)
[2018-08-06 05:28] LABS: CREATININE 0.9 mg/dL (0.5-1.5); POTASSIUM 4.3 mmol/L (3.5-5.1)
[2018-08-06] MEDS: HYDRALAZINE HCL 20 MG/ML VIAL IV PRN ×2 (06:16→16:39)
[2018-08-06] MEDS: BUDESONIDE 0.5 MG/2 ML INH IH SCH ×2 (06:30→18:43)
[2018-08-06] MEDS: ALBUTEROL SULFATE 0.083% 2.5 MG/3 ML INH IH SCH ×4 (06:30→23:43)
--- NOTE | 2018-08-06 08:00 | NUR ---
SEDATION VACATION ON HOLD DUE TO HTN BEFORE SEDATION REMOVED AND EXTREME HTN YESTERDAY OFF SEDATION. NOTIFIED BANKRUPTCY LEGAL ASSISTANT FOR CHAD, WHO WILL ADDRESS ON ROUNDS.
[2018-08-06] MEDS ORDERED: AMLODIPINE BESYLATE 5 MG TAB PO SCH (09:15)
--- NOTE | 2018-08-06 09:50 | NUR ---
SEDATION INCREASED FOR TRANSPORT TO CT OF HEAD - ESCORTED BY NURSE, ROBERT, PCP AND Terell KHALIL. TRANSPORTED WITH MONITOR AND O2 TANK BEING BAGGED BY RT.
--- NOTE | 2018-08-06 10:00 | NUR ---
PT TRANSPORTED TO CT TABLE - NOTE ELEVATED B/P 188/80 - DIPRIVAN AND FENTANYL INCREASED.
--- NOTE | 2018-08-06 10:10 | NUR ---
WHEN TRANSPORTING PT BACK TO BED, PT BECAME EXTUBATED AND OGT PULLED OUT - CALLED RAPID RESPONSE AND PT BAGGED - LOWEST SAT OF 89% WHILE R.T. GRABBING AMBU BAG FROM WALL WITH FM. V/S STABLE AND AUDIBLE RHONCHI. SEE RAPID RESPONSE FORM
--- NOTE | 2018-08-06 10:16 | NUR ---
SUCCESSFUL INTUBATION BY REMELT SUGAR BOILER AND SUCTIONED FOR YELLOWISH SECRETIONS - CHEST XRAY FOR PLACEMENT VERIFIED BY DAVID - Christy MERCADO,INPATIENT SERVICES RN FOR DR. BONILLA NOTIFIED OF OCCURRENCE. PT MARK THREW OUT.
[2018-08-06] MEDS: PROPOFOL 1000 MG/100 ML 100 ML IV PRN ×3 (11:01→16:54)
[2018-08-06] MEDS: DEXAMETHASONE SOD PHOSPHATE 4 MG/ML 1ML VIAL IVP SCH ×2 (12:00→20:44)
[2018-08-06] MEDS: FAMOTIDINE/PF 20 MG/2 ML VIAL IV SCH ×2 (12:00→20:44)
[2018-08-06] MEDS: HEPARIN SODIUM 5000UNIT/ML 1ML VIAL SQ SCH ×2 (12:01→20:43)
[2018-08-06] MEDS: HYDRALAZINE HCL 25 MG TABLET PO SCH ×3 (12:03→20:44)
[2018-08-06] MEDS: INSULIN REGULAR, HUMAN 3ML 100 UNIT in SODIUM CHLORIDE 0.9% 99 ML IV PRN ×2 (13:04)
[2018-08-06] MEDS: HYDROCHLOROTHIAZIDE 25 MG TABLET PO SCH (14:24)
[2018-08-06] MEDS: LOSARTAN 50 MG TABLET PO SCH (14:24)
--- NOTE | 2018-08-06 17:00 | NUR ---
UNABLE TO WEAN OFF SEDATION DUE TO HTN - APRESOLINE 10 MG IVP GIVEN.
--- NOTE | 2018-08-06 17:01 | NUR ---
RD Update RD notification for malnutrition received. Patient currently with TPN 07/24 Clinimix with intralipids (1608kcal/78gm protein) and trickle feeds in place as per MD order (Vital HP 5ml/hr 30ml residual). RD recommendations previously placed in patient chart. RD to continue to monitor. Please notify RD as nutritional concerns arise. Thank you.
[2018-08-06] MEDS ORDERED: M V I IV SCH (20:00)
[2018-08-06] MEDS ORDERED: CLINIMIX E IV SCH (20:00)
--- NOTE | 2018-08-06 20:24 | NUR ---
MADE AWARE NOW VIA PHONE OF CONSULT. NO ORDERS RECEIVED; HE STATED HE WILL SEE PT IN AM.
[2018-08-06] MEDS: INSULIN GLARGINE 100 UNITS/ML 10 ML VIAL SQ SCH (20:44)
[2018-08-07] VITALS (32 sets, daily range): BP systolic 138–234; BP diastolic 55–95
[2018-08-07] MEDS: HYDRALAZINE HCL 20 MG/ML VIAL IV PRN ×4 (01:16→22:07)
[2018-08-07] MEDS: ZOSYN 3.375GM+NS 50ML 50 ML IV SCH ×3 (01:16→17:40)
[2018-08-07] MEDS: PROPOFOL 1000 MG/100 ML 100 ML IV PRN ×2 (01:19→05:36)
[2018-08-07 04:37] LABS: APPEARANCE,URINE Clear (CLEAR); BILIRUBIN,URINE Negative (NEGATIVE); COLOR,URINE Yellow (YELLOW); GLUCOSE, URINE (UA) TRACE mg/dL (NEGATIVE); KETONES,URINE Negative (NEGATIVE); LEUKOCYTE ESTERASE ,URINE Trace (NEGATIVE); NITRATE,URINE Negative (NEGATIVE); OCCULT BLOOD,URINE Negative (NEGATIVE); PROTEIN,URINE Trace mg/dL (NEGATIVE)
[2018-08-07 05:12] LABS: BACTERIA,URINE None Seen /HPF (None Seen); RBC,URINE None Seen /HPF (0-1); SQUAMOUS EPITHELIAL CELL,UR Few /HPF (0-2); WBC,URINE 0-1 /HPF (0-1)
[2018-08-07] MEDS: FENTANYL 2500MCG+NS 250ML 250 ML IV PRN (05:37)
[2018-08-07 06:09] LABS: HEMATOCRIT 35.1 % (36-48); MEAN CORPUSCULAR HEMOGLOBIN 27.5 pg (27.0-33.0); MEAN CORPUSCULAR HGB CONC 32.6 g/dL (32.0-36.0); MEAN CORPUSCULAR VOLUME 84.5 fL (79-99); NUCLEATED RED BLOOD CELLS 0.2 % (0.0-0.19); PLATELET COUNT (AUTO) 225 K/uL (130-400); RED BLOOD CELL COUNT(AUTO) 4.16 MIL/uL (4.00-5.50); WHITE BLOOD COUNT (AUTO) 14.1 K/uL (4.8-10.8)
[2018-08-07 06:12] LABS: POTASSIUM 4.3 mmol/L (3.5-5.1)
[2018-08-07] MEDS: ALBUTEROL SULFATE 0.083% 2.5 MG/3 ML INH IH SCH ×3 (06:21→23:17)
[2018-08-07] MEDS: BUDESONIDE 0.5 MG/2 ML INH IH SCH ×2 (06:35→18:31)
--- NOTE | 2018-08-07 07:00 | NUR ---
PT RECEIVED IN BED, SEDATED AND ON VENTILATOR EET 7.5 @22 LIP; ON AC/14/450/5/30% WITH SATURATIONS 96%. PT IS SEDATED WITH PROPOFOL 40MCG AND FENTANYL 100MCG. INFUSING ARE TPN AT 65ML/HR, LR 100ML/HR AND INSULIN DRIP AT 3 UNITS, TITRATABLE VIA ALGORITHM 4. NOTED BP ELEVATED, PER REPORT, PT HAS BEEN HAVING ELEVATED BP AND NEW MEDICATIONS WERE STARTED. TO RUE PICC LINE WITH DRESSING DATED 08/04/18, 3 LUMEN WITH BLOOD RETURN NOTED TO ALL PORTS. OGT IS CLAMPED EXCEPT FOR MEDICATIONS. HOB IS ELEVATED, SCDS TO BLE, SR UP X 4. TELE WIT SR 80s. PT NOTED WITH + GAG AND COUGH AND GRIMACES TO PAINFUL STIMULI. WILL CONT TO MONITOR CLOSELY.
--- NOTE | 2018-08-07 07:12 | NUR ---
ROUNDS DR. GARRY WILDER IN TO SEE PATIENT. MD REVIEWED CHART AND SCAN FROM PREVIOUS ANGIOGRAM IN 2017. SPOKE WITH PT'S SON, SOO. HE INFORMED SON OF OCCLUSION TO LEFT LOWER EXTREMITY. NO INTERVENTION FROM HIM AT THIS TIME.
[2018-08-07] MEDS: FAMOTIDINE/PF 20 MG/2 ML VIAL IV SCH ×2 (08:58→20:32)
[2018-08-07] MEDS: DEXAMETHASONE SOD PHOSPHATE 4 MG/ML 1ML VIAL IVP SCH ×2 (08:59→20:33)
--- NOTE | 2018-08-07 09:00 | NUR ---
SHAYLEE MERCADO BROWNING PROCESSOR FOR DR. JEREMIAH BONILLA IN TO SEE PATIENT. CHART REVIEWED. I UPDATED HER DR. WILDER'S VISIT. INSTRUCTED TO FOLLOW UP WITH DR. LAM, REGARDING ANTICOAGULATION AND NEURO STATUS. INSTRUCTED TO WAKE PATIENT UP FOR ADEQUATE NEURO EVALUATION. NEW ORDERS RECEIVED TO BE CARRIED OUT.
[2018-08-07] MEDS: LOSARTAN 50 MG TABLET PO SCH (09:02)
[2018-08-07] MEDS: HYDROCHLOROTHIAZIDE 25 MG TABLET PO SCH (09:02)
[2018-08-07] MEDS: AMLODIPINE BESYLATE 5 MG TAB PO SCH (09:03)
[2018-08-07] MEDS: LACTATED RINGERS 1000ML 1,000 ML IV SCH (09:03)
[2018-08-07] MEDS: HYDRALAZINE HCL 25 MG TABLET PO SCH ×4 (09:03→18:21)
[2018-08-07] MEDS: HEPARIN SODIUM 5000UNIT/ML 1ML VIAL SQ SCH ×2 (09:26→20:36)
--- NOTE | 2018-08-07 09:30 | NUR ---
SEDATION VACATION INITIATED.
[2018-08-07] MEDS: FAT EMULSIONS 20% 250ML 250 ML IV SCH (10:43)
--- NOTE | 2018-08-07 11:14 | NUR ---
MD ROUNDS DR. LAM IN TO SEE PATIENT. MD REVIEWED CHART AND SCANS. MD ASSESSED PATIENT, STATES BRAINSTEM IS IN TACT. CONCERN FOR PAIN VOICED, NO SEIZURE ACTIVITY NOTED. MD ROUNDS DR. DENTON IN TO SEE PATIENT. HE SPOKE WITH DR. LAM REGARDING CASE. NEW ORDERS TO BE CARRIED OUT.
--- NOTE | 2018-08-07 11:14 | NUR ---
I CALLED RAINE MERCADO COUNSELOR EDUCATION PROFESSOR TO UPDATE ON NEUROLOGY CONSULT. I INFORMED HER PER DR. LAM, BRAINSTEM INTACT. PT AT HIGH RISK FOR BLEEDING AND THAT CURRENT HEPARIN ORDER SHOULD BE ENOUGH. INFORMED HER OF CONCERN FOR PAIN AND ELEVATED BP AT 170/63. NEW ORDERS RECEIVED TO PLACE BACK ON SEDATION FENTANYL 50MCG/HR. ORDERS CARRIED OUT.
[2018-08-07] MEDS: IPRATROPIUM/ALBUTEROL SULFATE 3 ML SOLUTION IH SCH ×3 (11:22→23:13)
[2018-08-07 12:23] LABS: ABG HCO3 21.2 mmol/L (21.0-28.0); ABG PCO2 35 mmHg (32-45)
--- NOTE | 2018-08-07 13:52 | NUR ---
INFORMED RAINE MERCADO PRINTED CIRCUIT BOARDS STRIPPER ETCHER ON CURRENT PT STATUS: PT IS RESPONDING, SQUEEZING HANDS BILATERALLY, NODDING YES OR NO TO SIMPLE QUESTIONS. PT NODDED YES TO PAIN TO STOMACH. INFORMED HER OF BP AT 165/68. NEW ORDERS RECEIVED FOR BP AND PAIN TO STOMACH. ORDERS TO BE CARRIED OUT.
[2018-08-07] MEDS: INSULIN REGULAR, HUMAN 3ML 100 UNIT in SODIUM CHLORIDE 0.9% 99 ML IV PRN ×2 (14:55)
[2018-08-07] MEDS: SUCRALFATE 1 GM/10 ML PO SCH ×2 (15:22→20:33)
--- NOTE | 2018-08-07 15:23 | NUR ---
BP 180/78, PRN HYDRALAZINE 10 MG IV ADMINISTERED. WILL CONT TO MONITOR.
--- NOTE | 2018-08-07 17:31 | NUR ---
[facility] CONSULT PATIENT ASSESSED ORDERED: PATIENT PRESENTS WITH CHEMICAL HORN TO LT ARM MEDIAL/ LT ARM LATERAL; [facility] RECOMMENDATIONS SUBMITTED. Addendum: 08/07/18 at 1733 by YOLANDA CHISHOLM LVN LVN W Amended: Links added.
[2018-08-07] MEDS: LIDOCAINE HCL 2% JELLY 5 ML TP PRN (17:47)
--- NOTE | 2018-08-07 18:37 | NUR ---
BP CONTINUES ELEVATED 180/69, HR 91. I UPDATED RAINE MERCADO INFORMATICS NURSE FOR DR. JEREMIAH BONILLA. NEW ORDERS RECEIVED TO BE CARRIED OUT.
--- NOTE | 2018-08-07 19:02 | NUR ---
INFORMED RAINE MERCADO SUPERVISOR PARTICLEBOARD OF HOME MEDICATION LISINOPRIL 40 MG PO AT HS. INSTRUCTED TO CONTINUE MEDICATION.
[2018-08-07] MEDS: LISINOPRIL 40 MG TABLET PO SCH (20:33)
[2018-08-07] MEDS: INSULIN GLARGINE 100 UNITS/ML 10 ML VIAL SQ SCH (20:35)
[2018-08-07] MEDS: CLINIMIX E 5%-15% 2,000 ML IV SCH (21:28)
--- NOTE | 2018-08-07 22:08 | NUR ---
BLOOD PRESSURE BLOOD PRESSURE ELEVATED. 214/93. HYDRALAZINE PRN ADMINISTERED.
[2018-08-07] MEDS: NICARDIPINE IN NACL, ISO-OSM 200 ML IV PRN (22:19)
--- NOTE | 2018-08-07 22:26 | NUR ---
BLOOD PRESSURE PATIENT REMAINS HYPERTENSIVE. NICARDIPINE DRIP INITIATED
[2018-08-08] VITALS (67 sets, daily range): BP systolic 113–199; BP diastolic 62–100
[2018-08-08] MEDS: HYDRALAZINE HCL 25 MG TABLET PO SCH ×4 (00:42→17:08)
[2018-08-08] MEDS: ZOSYN 3.375GM+NS 50ML 50 ML IV SCH ×3 (01:51→17:08)
[2018-08-08] MEDS: SUCRALFATE 1 GM/10 ML PO SCH ×4 (03:03→21:11)
[2018-08-08] MEDS: NICARDIPINE IN NACL, ISO-OSM 200 ML IV PRN ×4 (03:13→12:51)
[2018-08-08 04:37] LABS: HEMATOCRIT 33.2 % (36-48); MEAN CORPUSCULAR HGB CONC 32.3 g/dL (32.0-36.0); MEAN CORPUSCULAR VOLUME 83.4 fL (79-99); PLATELET COUNT (AUTO) 233 K/uL (130-400); RED BLOOD CELL COUNT(AUTO) 3.98 MIL/uL (4.00-5.50); RED CELL DISTRIBUTION WIDTH 15.8 % (11.0-15.5); WHITE BLOOD COUNT (AUTO) 15.1 K/uL (4.8-10.8)
[2018-08-08 04:50] LABS: ALBUMIN 1.7 g/dL (3.5-5.0); BILIRUBIN,TOTAL 0.5 mg/dL (0.2-1.0); POTASSIUM 4.2 mmol/L (3.5-5.1); TOTAL PROTEIN, SERUM 5.4 g/dL (6.0-8.3)
[2018-08-08] MEDS: ALBUTEROL SULFATE 0.083% 2.5 MG/3 ML INH IH SCH ×3 (06:00→23:42)
[2018-08-08] MEDS: IPRATROPIUM/ALBUTEROL SULFATE 3 ML SOLUTION IH SCH ×3 (06:12→18:05)
[2018-08-08] MEDS: BUDESONIDE 0.5 MG/2 ML INH IH SCH ×2 (06:12→18:05)
--- NOTE | 2018-08-08 07:00 | NUR ---
PT RECEIVED IN BED, HOB ELEVATED. PT CONT ON VENTILATOR ON AC/ 14/450/5/30% WITH 7.5 ETT 22 AT LIP. SATURATIONS AT 96%. OGT NOTED CLAMPED. CARDENE DRIP WAS INITIATED LAST NIGHT AND CONT TO THIS MORNING AT 2.5MG/HR (25ML). PT'S BLOOD PRESSURE AT 170s SYSTOLIC. PT'S SON IS AT BEDSIDE. POC DISCUSSED WITH PATIENT'S SON. TELE 80s SR. WILL CONT TO MONITOR CLOSELY. TPN INFUSING AT 65 ML/HR AND FENTANYL @ 100MCG. PATIENT ABLE TO SPONTANEOUSLY OPEN EYES, FOLLOWS COMMANDS AND MOVES UPPER EXTREMITIES. MITTENS ON BILATERAL HANDS.
[2018-08-08] MEDS: DEXAMETHASONE SOD PHOSPHATE 4 MG/ML 1ML VIAL IVP SCH ×2 (08:10→21:11)
[2018-08-08] MEDS: FAMOTIDINE/PF 20 MG/2 ML VIAL IV SCH ×2 (08:10→20:57)
[2018-08-08] MEDS: LOSARTAN 50 MG TABLET PO SCH (08:11)
[2018-08-08] MEDS: AMLODIPINE BESYLATE 5 MG TAB PO SCH (08:11)
[2018-08-08] MEDS: HYDROCHLOROTHIAZIDE 25 MG TABLET PO SCH (08:11)
[2018-08-08] MEDS: HEPARIN SODIUM 5000UNIT/ML 1ML VIAL SQ SCH ×2 (08:23→20:57)
[2018-08-08] MEDS ORDERED: FUROSEMIDE 10 MG/ML 4ML VIAL IV SCH (09:30)
--- NOTE | 2018-08-08 09:30 | NUR ---
ROUNDS RAINE MERCADO CLINICAL LAB SCIENTIST FOR DR. FELICE BONILLA IN TO EVALUATE PATIENTS. I UPDATED ON CURRENT STATUS. CHART AND CXR REVIEWED. NEW ORDERS RECEIVED TO BE CARRIED OUT. SHE SPOKE WITH PT'S SON REGARDING PT STATUS AND POC.
[2018-08-08] MEDS ORDERED: FUROSEMIDE 10 MG/ML 4ML VIAL ONE (09:31)
[2018-08-08] MEDS: FENTANYL 2500MCG+NS 250ML 250 ML IV PRN (10:06)
--- NOTE | 2018-08-08 10:15 | NUR ---
MD ROUNDS DR. JEREMIAH BONILLA INTO EVALUATE PT. NEW ORDERS RECEIVED.
[2018-08-08] MEDS: INSULIN REGULAR, HUMAN 3ML 100 UNIT in SODIUM CHLORIDE 0.9% 99 ML IV PRN ×2 (10:24)
--- NOTE | 2018-08-08 12:00 | NUR ---
ROUNDS DR. DENTON IN TO SEE PATIENT.
[2018-08-08] MEDS ORDERED: FUROSEMIDE 10 MG/ML 2ML VIAL IV SCH (13:15)
[2018-08-08 13:32] LABS: ABG BASE EXCESS -5.2 mmol/L (-2.0-3.0); ABG HCO3 19.3 mmol/L (21.0-28.0); ABG PCO2 34 mmHg (32-45)
--- NOTE | 2018-08-08 14:47 | NUR ---
RD Follow up note Patient with discontinued trickle tube feedings. Patient remains with TPN at 65mls/hr (1108kcal/78gm protein in addition to intralipid emulsion). Patient LBM unknown. Patient monitored labs: BUN 40, Glu 240, Ca 8.2, Alb 1.7. RN with no nutrition concerns at this time. RD to continue to monitor. Please notify RD as nutritional concerns arise. Thank you. Addendum: 08/08/18 at [address] Amended: Links added.
[2018-08-08] MEDS: HYDRALAZINE HCL 20 MG/ML VIAL IV PRN (15:22)
--- NOTE | 2018-08-08 16:00 | NUR ---
CARDENE WEANED OFF.
[2018-08-08] MEDS: LIDOCAINE HCL 2% JELLY 5 ML TP PRN (16:17)
[2018-08-08] MEDS: CLINIMIX E 5%-15% 2,000 ML IV SCH (16:45)
[2018-08-08] MEDS: INSULIN GLARGINE 100 UNITS/ML 10 ML VIAL SQ SCH (20:56)
[2018-08-08] MEDS: LISINOPRIL 40 MG TABLET PO SCH (20:57)
[2018-08-08] MEDS ORDERED: CLINIMIX E 5%-15% 2,000 ML IV SCH (21:15)
[2018-08-09] VITALS (26 sets, daily range): BP systolic 108–175; BP diastolic 51–107
[2018-08-09] MEDS: HYDRALAZINE HCL 25 MG TABLET PO SCH ×4 (01:55→18:15)
[2018-08-09] MEDS: ZOSYN 3.375GM+NS 50ML 50 ML IV SCH ×3 (01:56→18:15)
[2018-08-09] MEDS: FUROSEMIDE 10 MG/ML 4ML VIAL IV SCH ×2 (01:57→14:26)
[2018-08-09 04:02] LABS: HEMATOCRIT 34.2 % (36-48); MEAN CORPUSCULAR HEMOGLOBIN 28.2 pg (27.0-33.0); MEAN CORPUSCULAR HGB CONC 33.3 g/dL (32.0-36.0); MEAN CORPUSCULAR VOLUME 84.7 fL (79-99); PLATELET COUNT (AUTO) 234 K/uL (130-400); RED BLOOD CELL COUNT(AUTO) 4.04 MIL/uL (4.00-5.50); RED CELL DISTRIBUTION WIDTH 15.8 % (11.0-15.5); WHITE BLOOD COUNT (AUTO) 13.7 K/uL (4.8-10.8)
[2018-08-09 04:20] LABS: POTASSIUM 4.6 mmol/L (3.5-5.1)
[2018-08-09] MEDS: SUCRALFATE 1 GM/10 ML PO SCH ×4 (04:22→21:00)
[2018-08-09] MEDS: HYDRALAZINE HCL 20 MG/ML VIAL IV PRN ×2 (05:06→23:18)
[2018-08-09] MEDS: BUDESONIDE 0.5 MG/2 ML INH IH SCH ×2 (06:19→18:24)
[2018-08-09] MEDS: IPRATROPIUM/ALBUTEROL SULFATE 3 ML SOLUTION IH SCH ×4 (06:19→23:08)
[2018-08-09] MEDS: INSULIN REGULAR, HUMAN 3ML 100 UNIT in SODIUM CHLORIDE 0.9% 99 ML IV PRN ×2 (06:49)
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
[2018-08-09] MEDS: HYDROCHLOROTHIAZIDE 25 MG TABLET PO SCH (08:46)
[2018-08-09] MEDS: LOSARTAN 50 MG TABLET PO SCH (08:46)
[2018-08-09] MEDS: AMLODIPINE BESYLATE 5 MG TAB PO SCH (08:46)
[2018-08-09] MEDS: FAMOTIDINE/PF 20 MG/2 ML VIAL IV SCH ×2 (08:51→21:47)
[2018-08-09] MEDS: DEXAMETHASONE SOD PHOSPHATE 4 MG/ML 1ML VIAL IVP SCH ×2 (08:51→21:48)
[2018-08-09] MEDS: FAT EMULSIONS 20% 250ML 250 ML IV SCH (08:57)
[2018-08-09] MEDS: HEPARIN SODIUM 5000UNIT/ML 1ML VIAL SQ SCH ×2 (09:06→21:58)
[2018-08-09] MEDS: FENTANYL 2500MCG+NS 250ML 250 ML IV PRN (09:46)
[2018-08-09 10:38] LABS: ABG BASE EXCESS -1.8 mmol/L (-2.0-3.0); ABG HCO3 23.1 mmol/L (21.0-28.0); ABG OXYGEN SATURATION 89.7 % (95.0-99.0); ABG PCO2 40 mmHg (32-45)
[2018-08-09] MEDS ORDERED: PROPOFOL 1000 MG/100 ML IV PRN (12:15)
--- NOTE | 2018-08-09 12:30 | NUR ---
Patient able to follow commands. Patient with large leak. Dr. Canales at bedside. Patient extubated. Place on 40% cool mist.
[2018-08-09] MEDS ORDERED: CLINIMIX E 5%-15% 2,000 ML IV SCH (18:00)
[2018-08-09] MEDS: RACEPINEPHRINE HCL 2.25% 0.5 ML NEB SOLN NEB PRN (18:38)
[2018-08-09 19:43] LABS: ABG HCO3 19.5 mmol/L (21.0-28.0); ABG OXYGEN SATURATION 88.2 % (95.0-99.0); ABG PCO2 39 mmHg (32-45)
--- NOTE | 2018-08-09 19:50 | NUR ---
STATUS COUGHING AND VERY RESTLESS IN BED. SATS DOWN TO 88% WITH THIS. ABGS DRAWN AND RESULTED. CALL PLACED TO DR ESQUIVEL TO INFORM OF THIS. DAUGHTER AT BEDSIDE AND QUESTIONS ANSWERED.
--- NOTE | 2018-08-09 20:00 | NUR ---
MD CALL DR ESQUIVEL CALLS AND GIVEN ABG RESULTS , INFORMED OF HER COUGHING ALOT AND BEING VERY RESTLESS AND SAT 88%. ORDERS RECEIVED FOR BIPAP THEN STATES HE WILL CALL ER TO INTUBATE HER. DAUGHTER INFORMED OF ORDER TO INTUBATE BUT SHE IS CONCERNED OF CAUSING MORE DAMAGE TO HER THROAT WITH THIS.
--- NOTE | 2018-08-09 20:10 | NUR ---
STATUS RT HERE AND PLACED HER ON BIPAP WITH ORDERED SETTINGS. DAUGHTER HERE AND AWARE OF THIS AND QUESTIONS ANSWERED.
--- NOTE | 2018-08-09 20:20 | NUR ---
MD VISIT DR POOLE HERE AND VIEWS ABG RESULTS. SATS NOW BETTER ON BIPAP. NO ORDERS RECEIVED.
--- NOTE | 2018-08-09 20:30 | NUR ---
STATUS DR ESQUIVEL CALLS BACK AND INFORMED OF VISIT BY DR POOLE AND SATS BETTER ON BIPAP AND HR BETTER AND RESTING ON BIPAP AT THIS TIME. NEW ORDERS RECEIVED . DAUGHTER REMAINS AT BEDSIDE AND QUESTIONS ANSWERED. AT BEDSIDE ALSO AND AWARE OF THIS.
--- NOTE | 2018-08-09 21:30 | NUR ---
REPEAT ABGS DRAWN AT THIS TIME. RESTING ON BIPAP AND SATS REMAINS WNL. Maisha ABRAHAM NP DENTAL TECHNOLOGY ADVISOR FOR DR ESQUIVEL BEEPED TO GIVEN RESULTS.
[2018-08-09 21:34] LABS: ABG BASE EXCESS -3.5 mmol/L (-2.0-3.0); ABG HCO3 21.2 mmol/L (21.0-28.0); ABG OXYGEN SATURATION 96.7 % (95.0-99.0); ABG PCO2 37 mmHg (32-45)
[2018-08-09] MEDS: LISINOPRIL 40 MG TABLET PO SCH (21:47)
[2018-08-09] MEDS: INSULIN GLARGINE 100 UNITS/ML 10 ML VIAL SQ SCH (21:57)
--- NOTE | 2018-08-09 22:00 | NUR ---
OPTICAL DISPENSER CALL ABG RESULTS CALLED TO Maisha ABRAHAM NP AND NEW ORDERS RECEIVED. CONTINUES TO REST ON BIPAP WITH VSS. AT BEDSIDE.
[2018-08-10] VITALS (25 sets, daily range): BP systolic 140–191; BP diastolic 63–115
[2018-08-10] MEDS: FUROSEMIDE 10 MG/ML 4ML VIAL IV SCH ×2 (01:24→15:15)
[2018-08-10] MEDS: HYDRALAZINE HCL 25 MG TABLET PO SCH ×5 (01:24→18:40)
[2018-08-10] MEDS: SUCRALFATE 1 GM/10 ML PO SCH ×5 (02:28→22:05)
[2018-08-10] MEDS: ZOSYN 3.375GM+NS 50ML 50 ML IV SCH (02:28)
[2018-08-10 04:44] LABS: ABG BASE EXCESS -1.5 mmol/L (-2.0-3.0); ABG HCO3 23.7 mmol/L (21.0-28.0); ABG OXYGEN SATURATION 92.3 % (95.0-99.0); ABG PCO2 42 mmHg (32-45)
[2018-08-10] MEDS: IPRATROPIUM/ALBUTEROL SULFATE 3 ML SOLUTION IH SCH ×2 (06:07→11:38)
[2018-08-10] MEDS: RACEPINEPHRINE HCL 2.25% 0.5 ML NEB SOLN NEB PRN (06:40)
[2018-08-10] MEDS: BUDESONIDE 0.5 MG/2 ML INH IH SCH ×2 (06:48→18:30)
[2018-08-10] MEDS: HEPARIN SODIUM 5000UNIT/ML 1ML VIAL SQ SCH ×2 (08:07→21:03)
[2018-08-10] MEDS: DEXAMETHASONE SOD PHOSPHATE 4 MG/ML 1ML VIAL IVP SCH ×2 (08:07→17:49)
[2018-08-10] MEDS: FAMOTIDINE/PF 20 MG/2 ML VIAL IV SCH ×2 (08:07→20:56)
--- NOTE | 2018-08-10 08:25 | NUR ---
SpO2 88%-89% w/FiO2 .70 DiO2 increased to 1.0. Pt has large amt of thin white oral frothy secretions. Bipap mask removed for suctioning. Pt back on bpap.Respirations labored.
--- NOTE | 2018-08-10 08:30 | NUR ---
LABORED RESP, HIGH RR, COPIUS ORAL SECRETIONS AND BBS MARCO ANCHI - Toya SHAFER, TECHNICAL WRITING LEAD/MGR NOTIFIED OF PT STATUS - ON HIS WAY TO SEE PT.
[2018-08-10] MEDS: INSULIN REGULAR, HUMAN 3ML 100 UNIT in SODIUM CHLORIDE 0.9% 99 ML IV PRN ×4 (08:33→21:10)
[2018-08-10] MEDS ORDERED: FUROSEMIDE 10 MG/ML 10ML VIAL ONE (08:50)
--- NOTE | 2018-08-10 08:51 | NUR ---
Bipap changes made to 27/10
[2018-08-10] MEDS ORDERED: DEXAMETHASONE 10MG/ML 1ML VIAL 10 MG in SODIUM CHLORIDE 0.9% 50 ML IV SCH (08:53)
[2018-08-10] MEDS ORDERED: SODIUM CHLORIDE 0.9% 500ML 500 ML IV ONE (08:53)
[2018-08-10] MEDS ORDERED: FUROSEMIDE 10 MG/ML 10ML VIAL IVP SCH (09:00)
--- NOTE | 2018-08-10 09:00 | NUR ---
PT EVALUATED BY Toya SHAEFR NP - POSSIBLITY OF INTUBATION DISCUSSED WITH AND DAUGHTER - THEY ARE IN AGREEMENT IF DR. MOORE DECIDES IT IS NECESSARY.
[2018-08-10] MEDS: MEROPENEM 1 GM VIAL IVP SCH ×2 (09:21→16:09)
[2018-08-10] MEDS: HYDRALAZINE HCL 20 MG/ML VIAL IV PRN ×2 (09:22→17:49)
--- NOTE | 2018-08-10 09:30 | NUR ---
OGT MEDICATIONS AND HEPARIN HELD AT THIS TIME PENDING DR. MOORE DECISION RE: INTUBATION.
[2018-08-10 10:02] LABS: ABG BASE EXCESS -2.5 mmol/L (-2.0-3.0); ABG HCO3 24.1 mmol/L (21.0-28.0); ABG OXYGEN SATURATION 97.8 % (95.0-99.0); ABG PCO2 49 mmHg (32-45)
[2018-08-10] MEDS: LOSARTAN 50 MG TABLET PO SCH (11:08)
[2018-08-10] MEDS: AMLODIPINE BESYLATE 5 MG TAB PO SCH (11:08)
[2018-08-10] MEDS: HYDROCHLOROTHIAZIDE 25 MG TABLET PO SCH (11:08)
--- NOTE | 2018-08-10 11:40 | NUR ---
decreased FiO2 .80
--- NOTE | 2018-08-10 12:00 | NUR ---
RESP STATUS - IMPROVED AFTER LASIX AND DEXAMETHASONE IVPB. NO DISTRESS AT THIS TIME.
[2018-08-10] MEDS: RACEPINEPHRINE HCL 2.25% 0.5 ML NEB SOLN NEB SCH ×3 (14:01→23:16)
[2018-08-10] MEDS: ALBUTEROL SULFATE 0.083% 2.5 MG/3 ML INH IH SCH ×3 (14:11→22:13)
--- NOTE | 2018-08-10 14:20 | NUR ---
CARE TRANSFERRED TO COSME MURRAY
--- NOTE | 2018-08-10 14:49 | NUR ---
decreased FiO2 .70
[2018-08-10] MEDS ORDERED: CLINIMIX E 5%-15% 2,000 ML IV SCH (18:00)
--- NOTE | 2018-08-10 18:40 | NUR ---
INCONTINENT BM NOTED, CARE RENDERED AND REPOSITIONED. SPOUSE AT BEDSIDE.
[2018-08-10] MEDS: INSULIN GLARGINE 100 UNITS/ML 10 ML VIAL SQ SCH (21:03)
[2018-08-10] MEDS: LISINOPRIL 40 MG TABLET PO SCH (21:04)
[2018-08-11] VITALS (26 sets, daily range): BP systolic 123–170; BP diastolic 52–83
[2018-08-11] MEDS: DEXAMETHASONE SOD PHOSPHATE 4 MG/ML 1ML VIAL IVP SCH ×4 (00:18→21:08)
[2018-08-11] MEDS: FUROSEMIDE 10 MG/ML 4ML VIAL IV SCH ×2 (01:32→15:01)
[2018-08-11] MEDS: SUCRALFATE 1 GM/10 ML PO SCH ×4 (01:32→21:09)
[2018-08-11] MEDS: MEROPENEM 1 GM VIAL IVP SCH ×3 (01:32→17:56)
[2018-08-11] MEDS: HYDRALAZINE HCL 25 MG TABLET PO SCH ×4 (01:33→21:09)
[2018-08-11] MEDS: ALBUTEROL SULFATE 0.083% 2.5 MG/3 ML INH IH SCH ×6 (01:43→21:34)
[2018-08-11 03:58] LABS: HEMATOCRIT 32.7 % (36-48); MEAN CORPUSCULAR HEMOGLOBIN 27.4 pg (27.0-33.0); MEAN CORPUSCULAR HGB CONC 32.5 g/dL (32.0-36.0); MEAN CORPUSCULAR VOLUME 84.4 fL (79-99); NUCLEATED RED BLOOD CELLS 0.1 % (0.0-0.19); PLATELET COUNT (AUTO) 205 K/uL (130-400); RED BLOOD CELL COUNT(AUTO) 3.88 MIL/uL (4.00-5.50); RED CELL DISTRIBUTION WIDTH 15.2 % (11.0-15.5)
[2018-08-11 04:26] LABS: ALBUMIN 1.4 g/dL (3.5-5.0); BILIRUBIN,TOTAL 0.4 mg/dL (0.2-1.0); CREATININE 1.1 mg/dL (0.5-1.5); MAGNESIUM 1.6 mg/dL (1.80-2.40); POTASSIUM 3.7 mmol/L (3.5-5.1); TOTAL PROTEIN, SERUM 6.2 g/dL (6.0-8.3)
[2018-08-11] MEDS: BUDESONIDE 0.5 MG/2 ML INH IH SCH ×2 (06:22→18:20)
--- NOTE | 2018-08-11 06:28 | NUR ---
PATIENT UPDATE PT TACHYPNEIC SINCE THE BEGINNING OF THE SHIFT ON THE BIPAP 27/10 AT 70% WITH RR BET 30'S TO LOW 40'S WITH O2 SAT BET 90-94%. ANXIOUS FOR THE MOST PART, WIGGLES HEAD FROM SIDE TO SIDE, NEBS TX GIVEN BY RT. HAD A GOOD BOWEL MOVEMENT THIS AM, BEDBATH WITH A GOOD ANNIE CARE GIVEN. O2 SAT WAS DOWN TO 89% AFTER THE BATH, FIO2 UP TO 80% BUT STAYED LOW BET 87 TO 89%, WENT UP ON THE FIO2 UP TO 100%, O2 SAT MAINTAINING BET 89-92%, SUCTIONED BY RT, BREATHING TREATMENTS GIVEN. DRESSING TO THE LEFT ARM WITH BLISTERS CHANGED SINCE IT'S ALREADY SATURATED, 4X4'S ,ABD PADS REINFORCED WITH THE KERLIX ROLL. CONTINUES WITH THE STEROIDS AND THE ANTIBIOTICS PRESCRIBED, AFEBRILE, WITH GOOD URINE OUTPUT. INSULIN DRIP AT 3 UNITS PER HOUR, WITH VERY GOOD URINE OUTPUT.NSULIN DRIP AT 3 UNITS PER HOUR WITH THE CLINIMIX AT 65 CC'S PER HOUR, ALL INFUSING VIA THE PICC LINE WHICH IS FLUSHING WELL BUT UNABLE TO GET A GOOD BLOOD RETURN.
[2018-08-11] MEDS: RACEPINEPHRINE HCL 2.25% 0.5 ML NEB SOLN NEB SCH ×2 (06:56→11:48)
[2018-08-11 07:51] LABS: ABG BASE EXCESS -0.5 mmol/L (-2.0-3.0); ABG HCO3 25.5 mmol/L (21.0-28.0); ABG OXYGEN SATURATION 85.7 % (95.0-99.0); ABG PCO2 47 mmHg (32-45)
--- NOTE | 2018-08-11 08:30 | NUR ---
BIPAP ADJUSTED DUE TO LEAK AND REPOSITIONED FOR COMFORT. SPOUSE AT BEDSIDE.
--- NOTE | 2018-08-11 09:03 | NUR ---
ABG RESULTS TO Toya SHAFER NP, AT NURSE'S STATION.
--- NOTE | 2018-08-11 09:13 | NUR ---
Toya SHAFER, CONFIGURATION MANAGEMENT SPECIALIST, IN ROOM SPEAKING WITH PT.'S SPOUSE AT BEDSIDE RE:PLAN OF CARE. CONFIGURATION MANAGEMENT SPECIALIST SHOWING AND EXPLAINING PT.'S CXR FROM TODAY COMPARED TO YESTERDAY'S IMAGE, TO PT.'S SPOUSE; QUESTIONS ANSWERED BY CONFIGURATION MANAGEMENT SPECIALIST.
[2018-08-11] MEDS: LOSARTAN 50 MG TABLET PO SCH (09:26)
[2018-08-11] MEDS: HYDROCHLOROTHIAZIDE 25 MG TABLET PO SCH (09:26)
[2018-08-11] MEDS: FAMOTIDINE/PF 20 MG/2 ML VIAL IV SCH ×2 (09:26→21:09)
[2018-08-11] MEDS: AMLODIPINE BESYLATE 5 MG TAB PO SCH (09:26)
[2018-08-11] MEDS: HEPARIN SODIUM 5000UNIT/ML 1ML VIAL SQ SCH ×2 (09:27→21:10)
--- NOTE | 2018-08-11 10:00 | NUR ---
RESTING IN BED WITH HOB AT [address] RR DOWN TO 26/MIN. O2 SATURATION-96%. CALL LIGHT WITHIN REACH. PT.'S SPOUSE AT BEDSIDE.
--- NOTE | 2018-08-11 12:40 | NUR ---
DR MOORE AND GA HERE TO SEE PT UPDATED. DR MOORE MADE CHANGES TO BIPAP. HE INCREASED PRESSURES TO 20/10 STILL CONTINUES ON 100% FIO2. PATIENT WITH TACHYPNEA RESP RATE UP TO 45 PM. AROUSABLE. NO INTUBATION AT THIS TIME PER DR MOORE. NEW ORDERS RECEIVED AND CARRIED OUT. ZYVOX ORDERED.
--- NOTE | 2018-08-11 13:15 | NUR ---
SINUS RHYTHM HR 90'S. CONTINUES WITH TACHYPNEA WITH RESP RATE 30'S. MOVES HEAD SIDE TO SIDE. OPENS EYES TO VERBAL STIMULI. NGT TO LOW INTERMITTENT SUCTION PER DR MOORE'S ORDER.
--- NOTE | 2018-08-11 14:35 | NUR ---
ZYVOX FORM WAS GIVEN TO ME BY VINICIUS BEAVER. TOOK FORM TO DR MOORE ON 3RD FLOOR. HE STATED TO HAVE THE PHARMACIST CALL HIM. RELAYED MESSAGE TO SARANYA.
[2018-08-11] MEDS ORDERED: RACEPINEPHRINE HCL 2.25% 0.5 ML NEB SOLN NEB PRN (15:00)
[2018-08-11] MEDS: LEVOFLOXACIN 500 MG/D5W 100 ML 100 ML IV SCH (15:00)
[2018-08-11] MEDS: FLUCONAZOLE 400 MG/NS 200 ML 200 ML IV SCH (16:10)
[2018-08-11] MEDS: LINEZOLID 600 MG/ISO-OSM 300 ML IV SCH (18:10)
[2018-08-11] MEDS: INSULIN REGULAR, HUMAN 3ML 100 UNIT in SODIUM CHLORIDE 0.9% 99 ML IV PRN ×2 (18:26)
[2018-08-11] MEDS ORDERED: CLINIMIX E 5%-15% 2,000 ML IV SCH (19:45)
[2018-08-11] MEDS ORDERED: PHARMACY COMMUNICATION MISC SCH (20:00)
[2018-08-11] MEDS: LISINOPRIL 40 MG TABLET PO SCH (21:09)
[2018-08-11] MEDS: INSULIN GLARGINE 100 UNITS/ML 10 ML VIAL SQ SCH (21:11)
[2018-08-11] MEDS ORDERED: CLINIMIX E 4.25%-5% SOLUTION 2,000 ML IV SCH (21:15)
[2018-08-12] VITALS (24 sets, daily range): BP systolic 104–185; BP diastolic 47–101
[2018-08-12] MEDS: FUROSEMIDE 10 MG/ML 4ML VIAL IV SCH ×2 (00:48→12:30)
[2018-08-12] MEDS: MEROPENEM 1 GM VIAL IVP SCH ×2 (00:48→08:50)
[2018-08-12] MEDS: HYDRALAZINE HCL 25 MG TABLET PO SCH ×4 (00:49→18:01)
[2018-08-12] MEDS: HYDRALAZINE HCL 20 MG/ML VIAL IV PRN ×3 (01:10→19:56)
[2018-08-12] MEDS: ALBUTEROL SULFATE 0.083% 2.5 MG/3 ML INH IH SCH ×6 (01:54→21:26)
[2018-08-12] MEDS: LINEZOLID 600 MG/ISO-OSM 300 ML IV SCH (04:01)
[2018-08-12] MEDS: SUCRALFATE 1 GM/10 ML PO SCH ×4 (04:02→20:30)
[2018-08-12 04:07] LABS: HEMATOCRIT 30.6 % (36-48); MEAN CORPUSCULAR HEMOGLOBIN 27.6 pg (27.0-33.0); MEAN CORPUSCULAR VOLUME 83.9 fL (79-99); NUCLEATED RED BLOOD CELLS 0.1 % (0.0-0.19); PLATELET COUNT (AUTO) 210 K/uL (130-400); RED BLOOD CELL COUNT(AUTO) 3.65 MIL/uL (4.00-5.50); RED CELL DISTRIBUTION WIDTH 15.5 % (11.0-15.5); WHITE BLOOD COUNT (AUTO) 21.7 K/uL (4.8-10.8)
[2018-08-12 04:21] LABS: MAGNESIUM 1.8 mg/dL (1.80-2.40); POTASSIUM 3.4 mmol/L (3.5-5.1)
[2018-08-12] MEDS: DEXAMETHASONE SOD PHOSPHATE 4 MG/ML 1ML VIAL IVP SCH ×5 (05:15→23:30)
[2018-08-12 06:46] LABS: ABG BASE EXCESS 3.3 mmol/L (-2.0-3.0); ABG HCO3 28.2 mmol/L (21.0-28.0); ABG OXYGEN SATURATION 88.7 % (95.0-99.0); ABG PCO2 44 mmHg (32-45)
[2018-08-12] MEDS: BUDESONIDE 0.5 MG/2 ML INH IH SCH ×2 (06:50→18:02)
[2018-08-12] MEDS: INSULIN REGULAR, HUMAN 3ML 100 UNIT in SODIUM CHLORIDE 0.9% 99 ML IV PRN ×2 (06:56)
[2018-08-12] MEDS: FAMOTIDINE/PF 20 MG/2 ML VIAL IV SCH ×2 (08:50→20:30)
[2018-08-12] MEDS: LOSARTAN 50 MG TABLET PO SCH (08:50)
[2018-08-12] MEDS: AMLODIPINE BESYLATE 5 MG TAB PO SCH (08:50)
[2018-08-12] MEDS: HYDROCHLOROTHIAZIDE 25 MG TABLET PO SCH (08:50)
[2018-08-12] MEDS: FLUCONAZOLE 400 MG/NS 200 ML 200 ML IV SCH (08:50)
[2018-08-12] MEDS: FAT EMULSIONS 20% 250ML 250 ML IV SCH (08:51)
[2018-08-12] MEDS: HEPARIN SODIUM 5000UNIT/ML 1ML VIAL SQ SCH ×2 (08:54→20:38)
[2018-08-12] MEDS ORDERED: PROPOFOL 1000 MG/100 ML 100 ML IV ONE ×2 (11:49→14:49)
[2018-08-12] MEDS: ATROPINE SULFATE 0.1 MG/ML 10 ML SYG IVP PRN (12:28)
[2018-08-12] MEDS: LEVOFLOXACIN 500 MG/D5W 100 ML 100 ML IV SCH (12:31)
[2018-08-12] MEDS ORDERED: LIDOCAINE HCL-MPF 1% 2ML VIAL IVP PRN (12:45)
[2018-08-12] MEDS ORDERED: MAGNESIUM 2GM PREMIX 50ML 50 ML IV PRN (12:45)
[2018-08-12 13:18] LABS: ABG BASE EXCESS -0.1 mmol/L (-2.0-3.0); ABG HCO3 24.6 mmol/L (21.0-28.0); ABG PCO2 40 mmHg (32-45)
[2018-08-12] MEDS ORDERED: PROPOFOL 1000 MG/100 ML IV PRN (15:00)
[2018-08-12] MEDS: FUROSEMIDE 100 MG in SODIUM CHLORIDE 0.9% 90 ML IV PRN (15:03)
[2018-08-12] MEDS: LEVOFLOXACIN 750 MG/D5W 150 ML 150 ML IV SCH (18:05)
[2018-08-12] MEDS ORDERED: PHARMACY COMMUNICATION MISC SCH (20:15)
[2018-08-12 20:27] LABS: POTASSIUM 3.6 mmol/L (3.5-5.1)
[2018-08-12] MEDS: LISINOPRIL 40 MG TABLET PO SCH (20:31)
[2018-08-12] MEDS: INSULIN GLARGINE 100 UNITS/ML 10 ML VIAL SQ SCH (20:39)
[2018-08-12] MEDS: M.V.I. IV [ADULT] 10 ML in CLINIMIX E 5%-15% 2,000 ML IV NR (22:22)
[2018-08-12] MEDS: PROPOFOL 1000 MG/100 ML 100 ML IV PRN (22:28)
[2018-08-12] MEDS: POTASSIUM CHLORIDE 20MEQ/100ML 100 ML IV PRN (22:58)
[2018-08-13] VITALS (26 sets, daily range): BP systolic 124–171; BP diastolic 35–96
[2018-08-13] MEDS: PROPOFOL 1000 MG/100 ML 100 ML IV PRN ×6 (00:10→20:21)
[2018-08-13] MEDS: ALBUTEROL SULFATE 0.083% 2.5 MG/3 ML INH IH SCH ×6 (01:15→22:00)
[2018-08-13] MEDS: HYDRALAZINE HCL 25 MG TABLET PO SCH ×4 (01:33→17:39)
[2018-08-13 02:18] LABS: BASOPHILS % (AUTO) 0.2 % (0.0-5.0); HEMATOCRIT 26.2 % (36-48); LYMPHOCYTES % (AUTO) 4.3 % (21.0-51.0); MEAN CORPUSCULAR HEMOGLOBIN 27.7 pg (27.0-33.0); MEAN CORPUSCULAR HGB CONC 33.5 g/dL (32.0-36.0); MEAN CORPUSCULAR VOLUME 82.8 fL (79-99); MONOCYTES % (AUTO) 2.4 % (3.0-13.0); NEUTROPHILS % (AUTO) 93.1 % (40.0-77.0); NUCLEATED RED BLOOD CELLS 0.1 % (0.0-0.19); PLATELET COUNT (AUTO) 184 K/uL (130-400); RED BLOOD CELL COUNT(AUTO) 3.16 MIL/uL (4.00-5.50); WHITE BLOOD COUNT (AUTO) 11.9 K/uL (4.8-10.8)
[2018-08-13 02:26] LABS: CREATININE 1.1 mg/dL (0.5-1.5); MAGNESIUM 1.8 mg/dL (1.80-2.40); POTASSIUM 3.4 mmol/L (3.5-5.1)
[2018-08-13] MEDS: POTASSIUM CHLORIDE 20MEQ/100ML 100 ML IV PRN ×5 (03:11→21:02)
[2018-08-13] MEDS: SUCRALFATE 1 GM/10 ML PO SCH ×4 (03:12→20:22)
[2018-08-13] MEDS: BUDESONIDE 0.5 MG/2 ML INH IH SCH ×2 (06:17→19:18)
[2018-08-13] MEDS: DEXAMETHASONE SOD PHOSPHATE 4 MG/ML 1ML VIAL IVP SCH ×3 (06:39→17:39)
[2018-08-13] MEDS: HYDRALAZINE HCL 20 MG/ML VIAL IV PRN (07:49)
[2018-08-13 08:43] LABS: CREATININE 1.2 mg/dL (0.5-1.5); POTASSIUM 3.3 mmol/L (3.5-5.1)
[2018-08-13] MEDS: LOSARTAN 50 MG TABLET PO SCH (08:47)
[2018-08-13] MEDS: FAMOTIDINE/PF 20 MG/2 ML VIAL IV SCH ×2 (08:47→20:22)
[2018-08-13] MEDS: HYDROCHLOROTHIAZIDE 25 MG TABLET PO SCH (08:47)
[2018-08-13] MEDS: AMLODIPINE BESYLATE 5 MG TAB PO SCH (08:47)
[2018-08-13] MEDS: HEPARIN SODIUM 5000UNIT/ML 1ML VIAL SQ SCH ×2 (08:58→20:28)
[2018-08-13] MEDS: FUROSEMIDE 100 MG in SODIUM CHLORIDE 0.9% 90 ML IV PRN (09:42)
[2018-08-13] MEDS: INSULIN REGULAR, HUMAN 3ML 100 UNIT in SODIUM CHLORIDE 0.9% 99 ML IV PRN ×2 (11:28)
[2018-08-13] MEDS: FENTANYL 2500MCG+NS 250ML 250 ML IV PRN (17:35)
--- NOTE | 2018-08-13 19:15 | NUR ---
ASSESSMENT REPORT RECEIVED . PT INTUBATED AND SEDATED WITH ETT 7.5, 23 CM AT THE LIP, VENT SETTING AC RATE 20/TV 450/PEEP 10/FIO2 50%. SEDATED WITH TPN, LASIX, INSULIN , FENTANYL AND PROPOFOL, INFUSING THROUGH PICC LINE RUE. . PUPILS: LEFT 4MM FIXED. 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 OGT TO L.I.W.S WITH GREEN LIQUID NOTED, VENEGAS CATH 18FR YELLOW URINE WITH TO BSD. SCD IN PLACE BILATERALLY. PEDAL AND RADIAL PULSES -CONFIRMED WITH HAND HELD DOPPLER. DRESSING TO LEFT ARM DRY AND INTACT. PATIENT CALM . CALL GODOY WITHIN REACH. ASSESSMENT COMPLETED, SEE FLOW SHEET.
[2018-08-13 19:25] LABS: CREATININE 1.1 mg/dL (0.5-1.5); POTASSIUM 3.3 mmol/L (3.5-5.1)
[2018-08-13] MEDS: LISINOPRIL 40 MG TABLET PO SCH (20:22)
[2018-08-13] MEDS: INSULIN GLARGINE 100 UNITS/ML 10 ML VIAL SQ SCH (20:28)
[2018-08-13] MEDS: M.V.I. IV [ADULT] 10 ML in CLINIMIX E 5%-15% 2,000 ML IV NR (20:29)
--- NOTE | 2018-08-13 22:00 | NUR ---
WITH ETT SUCTIONING , PATIENT OPENS EYES, MOVES BLE.
[2018-08-13 23:45] LABS: CREATININE 1.2 mg/dL (0.5-1.5); POTASSIUM 4.2 mmol/L (3.5-5.1)
[2018-08-14] VITALS (34 sets, daily range): BP systolic 129–171; BP diastolic 52–79
[2018-08-14] MEDS: DEXAMETHASONE SOD PHOSPHATE 4 MG/ML 1ML VIAL IVP SCH ×4 (00:06→18:14)
[2018-08-14] MEDS: PROPOFOL 1000 MG/100 ML 100 ML IV PRN ×2 (00:22→06:35)
[2018-08-14] MEDS: HYDRALAZINE HCL 25 MG TABLET PO SCH ×4 (00:41→18:15)
[2018-08-14] MEDS: ALBUTEROL SULFATE 0.083% 2.5 MG/3 ML INH IH SCH ×6 (02:19→21:16)
[2018-08-14] MEDS: INSULIN REGULAR, HUMAN 3ML 100 UNIT in SODIUM CHLORIDE 0.9% 99 ML IV PRN ×2 (02:22)
[2018-08-14] MEDS: SUCRALFATE 1 GM/10 ML PO SCH ×4 (02:28→21:32)
[2018-08-14 04:03] LABS: BASOPHILS % (AUTO) 0.4 % (0.0-5.0); HEMATOCRIT 27.7 % (36-48); LYMPHOCYTES % (AUTO) 6.1 % (21.0-51.0); MEAN CORPUSCULAR HGB CONC 33.8 g/dL (32.0-36.0); MONOCYTES % (AUTO) 2.1 % (3.0-13.0); NEUTROPHILS % (AUTO) 91.4 % (40.0-77.0); PLATELET COUNT (AUTO) 212 K/uL (130-400); RED BLOOD CELL COUNT(AUTO) 3.33 MIL/uL (4.00-5.50); RED CELL DISTRIBUTION WIDTH 15.3 % (11.0-15.5); WHITE BLOOD COUNT (AUTO) 6.9 K/uL (4.8-10.8)
[2018-08-14] MEDS: MIDAZOLAM 100MG-0.9% NS 100ML 100 ML IV PRN (04:04)
[2018-08-14 04:27] LABS: ALBUMIN 1.3 g/dL (3.5-5.0); BILIRUBIN,TOTAL 0.3 mg/dL (0.2-1.0); CREATININE 1.2 mg/dL (0.5-1.5); MAGNESIUM 2.2 mg/dL (1.80-2.40); PHOSPHORUS 4.6 mg/dL (2.5-4.9); POTASSIUM 3.6 mmol/L (3.5-5.1); TOTAL PROTEIN, SERUM 5.5 g/dL (6.0-8.3)
[2018-08-14] MEDS: POTASSIUM CHLORIDE 20MEQ/100ML 100 ML IV PRN (04:41)
[2018-08-14] MEDS: HYDRALAZINE HCL 20 MG/ML VIAL IV PRN (05:20)
[2018-08-14] MEDS: FUROSEMIDE 100 MG in SODIUM CHLORIDE 0.9% 90 ML IV PRN (05:33)
[2018-08-14] MEDS: BUDESONIDE 0.5 MG/2 ML INH IH SCH ×2 (06:17→18:22)
[2018-08-14] MEDS: AMLODIPINE BESYLATE 5 MG TAB PO SCH (09:32)
[2018-08-14] MEDS: HYDROCHLOROTHIAZIDE 25 MG TABLET PO SCH (09:32)
[2018-08-14] MEDS: FAMOTIDINE/PF 20 MG/2 ML VIAL IV SCH ×2 (09:32→21:32)
[2018-08-14] MEDS: LEVOFLOXACIN 750 MG/D5W 150 ML 150 ML IV SCH (09:32)
[2018-08-14] MEDS: HEPARIN SODIUM 5000UNIT/ML 1ML VIAL SQ SCH ×2 (09:32→21:46)
[2018-08-14] MEDS: FAT EMULSIONS 20% 250ML 250 ML IV SCH (09:32)
[2018-08-14] MEDS: LOSARTAN 50 MG TABLET PO SCH (09:32)
[2018-08-14 09:39] LABS: ABG BASE EXCESS 2.3 mmol/L (-2.0-3.0); ABG HCO3 26.9 mmol/L (21.0-28.0); ABG OXYGEN SATURATION 94.4 % (95.0-99.0); ABG PCO2 42 mmHg (32-45)
[2018-08-14 10:28] LABS: CREATININE 1.2 mg/dL (0.5-1.5); POTASSIUM 3.9 mmol/L (3.5-5.1)
--- NOTE | 2018-08-14 15:11 | NUR ---
RD Follow up note Pt remains intubated, sedated, tolerating TPN. Pt LBM 08/14/18. Pt monitored labs: BUN 79, GFR 49, Glu 281, AST 39, Alb 1.3. RD to continue to monitor. Please notify RD as additional nutritional concerns arise. Thank you. Addendum: 08/14/18 at [address] RD Amended: Links added.
[2018-08-14] MEDS ORDERED: M.V.I. IV [ADULT] 10 ML in CLINIMIX E 5%-15% 2,000 ML IV ONE (21:00)
[2018-08-14] MEDS: INSULIN GLARGINE 100 UNITS/ML 10 ML VIAL SQ SCH (21:47)
[2018-08-14] MEDS: LISINOPRIL 40 MG TABLET PO SCH (21:49)
[2018-08-14 23:00] LABS: CREATININE 1.1 mg/dL (0.5-1.5); POTASSIUM 3.7 mmol/L (3.5-5.1)
[2018-08-15] VITALS (28 sets, daily range): BP systolic 129–173; BP diastolic 49–90
[2018-08-15] MEDS: DEXAMETHASONE SOD PHOSPHATE 4 MG/ML 1ML VIAL IVP SCH ×4 (00:32→21:22)
[2018-08-15] MEDS: HYDRALAZINE HCL 25 MG TABLET PO SCH ×4 (00:32→18:15)
[2018-08-15] MEDS: FENTANYL 2500MCG+NS 250ML 250 ML IV PRN (00:36)
[2018-08-15] MEDS: MIDAZOLAM 100MG-0.9% NS 100ML 100 ML IV PRN (00:37)
[2018-08-15] MEDS: INSULIN REGULAR, HUMAN 3ML 100 UNIT in SODIUM CHLORIDE 0.9% 99 ML IV PRN ×2 (00:45)
[2018-08-15] MEDS: ALBUTEROL SULFATE 0.083% 2.5 MG/3 ML INH IH SCH ×6 (01:43→21:26)
[2018-08-15 03:35] LABS: HEMATOCRIT 29.6 % (36-48); MEAN CORPUSCULAR HEMOGLOBIN 27.3 pg (27.0-33.0); MEAN CORPUSCULAR HGB CONC 32.9 g/dL (32.0-36.0); MEAN CORPUSCULAR VOLUME 83.1 fL (79-99); NUCLEATED RED BLOOD CELLS 0.2 % (0.0-0.19); PLATELET COUNT (AUTO) 232 K/uL (130-400); RED BLOOD CELL COUNT(AUTO) 3.57 MIL/uL (4.00-5.50); RED CELL DISTRIBUTION WIDTH 15.4 % (11.0-15.5); WHITE BLOOD COUNT (AUTO) 9.5 K/uL (4.8-10.8)
[2018-08-15] MEDS: SUCRALFATE 1 GM/10 ML PO SCH ×4 (03:40→21:22)
[2018-08-15 03:51] LABS: ALBUMIN 1.3 g/dL (3.5-5.0); BILIRUBIN,TOTAL 0.2 mg/dL (0.2-1.0); MAGNESIUM 2.2 mg/dL (1.80-2.40); PHOSPHORUS 3.9 mg/dL (2.5-4.9); POTASSIUM 3.8 mmol/L (3.5-5.1); TOTAL PROTEIN, SERUM 5.4 g/dL (6.0-8.3)
[2018-08-15 04:14] LABS: ABG HCO3 29.6 mmol/L (21.0-28.0); ABG OXYGEN SATURATION 97.4 % (95.0-99.0); ABG PCO2 43 mmHg (32-45)
[2018-08-15] MEDS: BUDESONIDE 0.5 MG/2 ML INH IH SCH ×2 (06:13→18:24)
[2018-08-15] MEDS: FAMOTIDINE/PF 20 MG/2 ML VIAL IV SCH ×2 (08:30→21:21)
[2018-08-15] MEDS: AMLODIPINE BESYLATE 5 MG TAB PO SCH (08:30)
[2018-08-15] MEDS: HYDROCHLOROTHIAZIDE 25 MG TABLET PO SCH (08:30)
[2018-08-15] MEDS: HEPARIN SODIUM 5000UNIT/ML 1ML VIAL SQ SCH ×2 (08:31→21:35)
[2018-08-15] MEDS: INSULIN HUMULIN R 100 UNIT/ML 3ML SQ SCH ×4 (10:21→21:38)
[2018-08-15] MEDS: METOCLOPRAMIDE 10 MG/2 ML VIAL IVP SCH ×2 (14:10→21:39)
--- NOTE | 2018-08-15 14:30 | NUR ---
RD Update RD Recommendation for Tube feeding as per MD order. RD rec Vital AF 1.2 to start at 20mL/hr for 10hrs, Increase by 5mL Q5hrs as tolerated to goal of 55mL/hr (1320mL/1584kcal/99gm protein/1071 free H2O). Flush recs: 60mL Q6hrs. Noted 3+BUE/2+BLE Pitting edema, therefore rec to restrict fluid to 1500mls. RD to continue to monitor. Please notify RD as additional nutritional concerns arise. Thank you.
--- NOTE | 2018-08-15 16:40 | NUR ---
[facility] consult Patient assessed as ordered. Dressing in place to left arm. Blister to left heel remains intact; heel being off loaded with pillow. Patient is on specialty bed. [facility] recommendations submitted. Addendum: 08/15/18 at 1731 by LAWSON SANDERS RN/ Amended: Links added.
[2018-08-15] MEDS: ZINC OXIDE OINT 30GM TUBE TP SCH (18:43)
--- NOTE | 2018-08-15 20:30 | NUR ---
ASSESSMENT REMAINS ON VENT WITH ORDERED SETTINGS AND SEDATION. ASSESSMENT COMPLETED SEE FLOW SHEET. DAUGHTER AT BEDSIDE AND QUESTIONS ANSWERED. ENCOURAGED TO CALL FOR WANTS OR NEEDS.
[2018-08-15] MEDS: LISINOPRIL 40 MG TABLET PO SCH (21:23)
[2018-08-15] MEDS: INSULIN GLARGINE 100 UNITS/ML 10 ML VIAL SQ SCH (21:37)
[2018-08-15] MEDS ORDERED: M.V.I. IV [ADULT] 10 ML in CLINIMIX E 5%-15% 2,000 ML IV SCH (22:00)
[2018-08-16] VITALS (25 sets, daily range): BP systolic 112–184; BP diastolic 45–72
[2018-08-16] MEDS: HYDRALAZINE HCL 25 MG TABLET PO SCH ×4 (00:15→18:42)
[2018-08-16] MEDS: INSULIN HUMULIN R 100 UNIT/ML 3ML SQ SCH ×6 (00:25→20:24)
[2018-08-16] MEDS: ALBUTEROL SULFATE 0.083% 2.5 MG/3 ML INH IH SCH ×6 (01:44→22:09)
[2018-08-16] MEDS: SUCRALFATE 1 GM/10 ML PO SCH ×4 (03:12→20:25)
[2018-08-16 03:41] LABS: HEMATOCRIT 29.6 % (36-48); MEAN CORPUSCULAR HEMOGLOBIN 28.3 pg (27.0-33.0); MEAN CORPUSCULAR HGB CONC 33.5 g/dL (32.0-36.0); MEAN CORPUSCULAR VOLUME 84.7 fL (79-99); NUCLEATED RED BLOOD CELLS 0.1 % (0.0-0.19); PLATELET COUNT (AUTO) 231 K/uL (130-400); RED CELL DISTRIBUTION WIDTH 15.4 % (11.0-15.5); WHITE BLOOD COUNT (AUTO) 9.2 K/uL (4.8-10.8)
[2018-08-16 04:18] LABS: CREATININE 0.9 mg/dL (0.5-1.5); MAGNESIUM 2.4 mg/dL (1.80-2.40); POTASSIUM 4.4 mmol/L (3.5-5.1)
[2018-08-16 04:21] LABS: ABG HCO3 29.4 mmol/L (21.0-28.0); ABG OXYGEN SATURATION 96.7 % (95.0-99.0); ABG PCO2 42 mmHg (32-45)
[2018-08-16] MEDS: MIDAZOLAM 100MG-0.9% NS 100ML 100 ML IV PRN (05:47)
[2018-08-16] MEDS: DEXAMETHASONE SOD PHOSPHATE 4 MG/ML 1ML VIAL IVP SCH ×3 (05:49→22:12)
[2018-08-16] MEDS: METOCLOPRAMIDE 10 MG/2 ML VIAL IVP SCH ×3 (05:49→22:12)
--- NOTE | 2018-08-16 06:17 | NUR ---
STATUS AFTER CXR RESTLESS AND BITING ON ETT. SEDATION INCREASED FOR VENT CONTROL.
[2018-08-16] MEDS: BUDESONIDE 0.5 MG/2 ML INH IH SCH ×2 (06:31→18:49)
[2018-08-16] MEDS: AMLODIPINE BESYLATE 5 MG TAB PO SCH (08:17)
[2018-08-16] MEDS: ZINC OXIDE OINT 30GM TUBE TP SCH (08:17)
[2018-08-16] MEDS: LEVOFLOXACIN 750 MG/D5W 150 ML 150 ML IV SCH (08:17)
[2018-08-16] MEDS: HYDROCHLOROTHIAZIDE 25 MG TABLET PO SCH (08:17)
[2018-08-16] MEDS: FAMOTIDINE/PF 20 MG/2 ML VIAL IV SCH ×2 (08:18→20:26)
[2018-08-16] MEDS: HEPARIN SODIUM 5000UNIT/ML 1ML VIAL SQ SCH ×2 (08:20→20:25)
[2018-08-16] MEDS: HYDRALAZINE HCL 20 MG/ML VIAL IV PRN (08:23)
[2018-08-16 13:17] LABS: BASOPHILS % (AUTO) 0.2 % (0.0-5.0); HEMATOCRIT 28.9 % (36-48); LYMPHOCYTES % (AUTO) 4.3 % (21.0-51.0); MEAN CORPUSCULAR HGB CONC 33.2 g/dL (32.0-36.0); MEAN CORPUSCULAR VOLUME 84.1 fL (79-99); MONOCYTES % (AUTO) 0.5 % (3.0-13.0); NUCLEATED RED BLOOD CELLS 0.1 % (0.0-0.19); PLATELET COUNT (AUTO) 218 K/uL (130-400); RED BLOOD CELL COUNT(AUTO) 3.44 MIL/uL (4.00-5.50); RED CELL DISTRIBUTION WIDTH 15.4 % (11.0-15.5)
[2018-08-16 13:29] LABS: PROTHROMBIN TIME 10.5 SEC (9.6-11.6)
[2018-08-16 13:41] LABS: POTASSIUM 4.3 mmol/L (3.5-5.1)
[2018-08-16] MEDS: FENTANYL 2500MCG+NS 250ML 250 ML IV PRN (16:14)
[2018-08-16] MEDS: INSULIN GLARGINE 100 UNITS/ML 10 ML VIAL SQ SCH (20:25)
[2018-08-16] MEDS: LISINOPRIL 40 MG TABLET PO SCH (20:26)
[2018-08-16] MEDS ORDERED: MIDAZOLAM HCL 5 MG/ML 2ML VIAL IV ONE (23:48)
[2018-08-17] VITALS (40 sets, daily range): BP systolic 119–164; BP diastolic 46–92
--- NOTE | 2018-08-17 | NUR ---
NPO TUBE FEEDING HELD AT THIS TIME FOR EGD AND PEG IN AM.
[2018-08-17] MEDS: INSULIN HUMULIN R 100 UNIT/ML 3ML SQ SCH ×6 (00:12→20:00)
[2018-08-17] MEDS: HYDRALAZINE HCL 25 MG TABLET PO SCH ×4 (00:56→18:07)
[2018-08-17] MEDS: SUCRALFATE 1 GM/10 ML PO SCH ×4 (02:08→20:25)
[2018-08-17] MEDS: ALBUTEROL SULFATE 0.083% 2.5 MG/3 ML INH IH SCH ×6 (02:20→21:31)
[2018-08-17 04:28] LABS: BASOPHILS % (AUTO) 0.1 % (0.0-5.0); EOSINOPHILS % (AUTO) 0.1 % (0.0-8.0); HEMATOCRIT 29.3 % (36-48); LYMPHOCYTES % (AUTO) 4.1 % (21.0-51.0); MEAN CORPUSCULAR HEMOGLOBIN 28.2 pg (27.0-33.0); MEAN CORPUSCULAR HGB CONC 33.4 g/dL (32.0-36.0); MEAN CORPUSCULAR VOLUME 84.6 fL (79-99); MONOCYTES % (AUTO) 1.2 % (3.0-13.0); NEUTROPHILS % (AUTO) 94.5 % (40.0-77.0); NUCLEATED RED BLOOD CELLS 0.1 % (0.0-0.19); PLATELET COUNT (AUTO) 199 K/uL (130-400); RED BLOOD CELL COUNT(AUTO) 3.46 MIL/uL (4.00-5.50); RED CELL DISTRIBUTION WIDTH 15.4 % (11.0-15.5); WHITE BLOOD COUNT (AUTO) 10.1 K/uL (4.8-10.8)
[2018-08-17 04:39] LABS: INR 0.98 (0.85-1.15); PARTIAL THROMBOPLASTIN TIME 25.7 SEC (26.3-35.5); PROTHROMBIN TIME 10.3 SEC (9.6-11.6)
[2018-08-17 04:50] LABS: MAGNESIUM 2.7 mg/dL (1.80-2.40); POTASSIUM 4.9 mmol/L (3.5-5.1)
[2018-08-17] MEDS: METOCLOPRAMIDE 10 MG/2 ML VIAL IVP SCH ×3 (06:29→21:51)
[2018-08-17] MEDS: DEXAMETHASONE SOD PHOSPHATE 4 MG/ML 1ML VIAL IVP SCH ×2 (06:31→20:20)
[2018-08-17] MEDS: BUDESONIDE 0.5 MG/2 ML INH IH SCH ×2 (07:15→18:07)
[2018-08-17] MEDS: FAMOTIDINE/PF 20 MG/2 ML VIAL IV SCH ×2 (08:47→20:20)
[2018-08-17] MEDS: ZINC OXIDE OINT 30GM TUBE TP SCH (08:50)
[2018-08-17] MEDS: HEPARIN SODIUM 5000UNIT/ML 1ML VIAL SQ SCH ×2 (08:50→20:27)
--- NOTE | 2018-08-17 08:51 | NUR ---
HEPARIN SQ HELD DUE TO PEG PLACEMENT PENDING FOR TODAY
[2018-08-17] MEDS: HYDROCHLOROTHIAZIDE 25 MG TABLET PO SCH (09:00)
[2018-08-17] MEDS: AMLODIPINE BESYLATE 5 MG TAB PO SCH (09:00)
--- NOTE | 2018-08-17 09:00 | NUR ---
wound care done to left arm; cleaned and new dressing placed; zinc oxide and Allevyn life foam placed to coccyx area after cleaning
--- NOTE | 2018-08-17 10:30 | NUR ---
DR AKERS AT BEDSIDE AND EXPLAINED TRACH PROCEDURE TO AND DAUGHTER; TRACH INSERTION TO BE SCHEDULED FOR Sunday08/19/18; NO QUESTIONS FROM FAMILY AT THIS TIME; PEG TUBE ALSO JUST INSERTED BY DR MONTIEL AT THIS TIME.
[2018-08-17] MEDS: MIDAZOLAM 100MG-0.9% NS 100ML 100 ML IV PRN (11:15)
[2018-08-17] MEDS: FENTANYL 2500MCG+NS 250ML 250 ML IV PRN (11:15)
--- NOTE | 2018-08-17 13:00 | NUR ---
sedation vacation done at this time; patient not following commands, but restless and trying to remove ET tube, sitting up and moving legs out of bed; will attempt sedation vacation again tomorrow
[2018-08-17] MEDS ORDERED: DEXAMETHASONE SOD PHOSPHATE 4 MG/ML 1ML VIAL ONE (20:09)
[2018-08-17] MEDS: LISINOPRIL 40 MG TABLET PO SCH (20:25)
[2018-08-17] MEDS: INSULIN GLARGINE 100 UNITS/ML 10 ML VIAL SQ SCH (20:29)
[2018-08-17] MEDS ORDERED: DEXAMETHASONE SOD PHOSPHATE 4 MG/ML 1ML VIAL IVP SCH (21:00)
--- NOTE | 2018-08-17 23:03 | NUR ---
STATUS DR AGATA SHAFER. UP DATED ON PATIENT CONDITION. NO NEW ORDERS RECEIVED.
[2018-08-18] VITALS (23 sets, daily range): BP systolic 136–176; BP diastolic 56–87
[2018-08-18] MEDS: HYDRALAZINE HCL 25 MG TABLET PO SCH ×4 (00:07→20:09)
[2018-08-18] MEDS: ALBUTEROL SULFATE 0.083% 2.5 MG/3 ML INH IH SCH ×6 (02:01→21:24)
[2018-08-18] MEDS: SUCRALFATE 1 GM/10 ML PO SCH ×4 (02:30→20:10)
[2018-08-18] MEDS: INSULIN HUMULIN R 100 UNIT/ML 3ML SQ SCH ×6 (04:17→20:00)
[2018-08-18 04:24] LABS: CREATININE 0.8 mg/dL (0.5-1.5); MAGNESIUM 2.7 mg/dL (1.80-2.40); POTASSIUM 4.8 mmol/L (3.5-5.1)
[2018-08-18 04:55] LABS: HEMATOCRIT 30.6 % (36-48); MEAN CORPUSCULAR HEMOGLOBIN 27.1 pg (27.0-33.0); MEAN CORPUSCULAR HGB CONC 32.1 g/dL (32.0-36.0); MEAN CORPUSCULAR VOLUME 84.2 fL (79-99); PLATELET COUNT (AUTO) 246 K/uL (130-400); RED BLOOD CELL COUNT(AUTO) 3.63 MIL/uL (4.00-5.50); RED CELL DISTRIBUTION WIDTH 15.2 % (11.0-15.5); WHITE BLOOD COUNT (AUTO) 14.5 K/uL (4.8-10.8)
[2018-08-18] MEDS: METOCLOPRAMIDE 10 MG/2 ML VIAL IVP SCH ×3 (05:28→22:09)
[2018-08-18 05:47] LABS: BAND NEUTROPHILS % (MANUAL) 2 % (0-2); LYMPHOCYTES % (MANUAL) 1 % (22-44); MAN.DIFF COMMENT-IMPRESSION MANUAL DIFFERENTIAL; MONOCYTES % (MANUAL) 1 % (2-9); PLATELET MORPHOLOGY COMMENT ADEQUATE; SEGMENTED NEUTROPHILS % 96 % (40-70)
[2018-08-18] MEDS: BUDESONIDE 0.5 MG/2 ML INH IH SCH ×2 (07:18→18:10)
[2018-08-18] MEDS: AMLODIPINE BESYLATE 5 MG TAB PO SCH (08:35)
[2018-08-18] MEDS: LEVOFLOXACIN 750 MG/D5W 150 ML 150 ML IV SCH (08:35)
[2018-08-18] MEDS: HYDROCHLOROTHIAZIDE 25 MG TABLET PO SCH (08:35)
[2018-08-18] MEDS: FAMOTIDINE/PF 20 MG/2 ML VIAL IV SCH ×2 (08:35→20:10)
[2018-08-18] MEDS ORDERED: DEXAMETHASONE SOD PHOSPHATE 4 MG/ML 1ML VIAL ONE ×2 (08:37→20:07)
[2018-08-18] MEDS: DEXAMETHASONE SOD PHOSPHATE 4 MG/ML 1ML VIAL IVP SCH ×2 (08:37→20:10)
[2018-08-18] MEDS: HEPARIN SODIUM 5000UNIT/ML 1ML VIAL SQ SCH ×2 (08:38→19:00)
[2018-08-18] MEDS: ZINC OXIDE OINT 30GM TUBE TP SCH (08:38)
--- NOTE | 2018-08-18 10:24 | NUR ---
SKIN CARE TO BUTTOCKS (SMALL DRIED BLISTERS TO LEFT BUTTOCK) AND ANNIE CARE DONE.VENEGAS CARE DONE. ORAL CARE DONE. WOUND CARE TO LEFT ARM DONE. LEFT ARM CHEMICAL HORN ARE HEALING. THEY ARE PINK AND DRY.AREA CLEANSED GENTLY WITH NS AND PAT DRIED WITH 4X4'S. DRESSED WITH NON ADHERENT PETROLEUM GAUZE AND WRAPPED WITH KERLIX. PT RESISTS CARE AND PUSHES ME AWAY. SHE BITES DOWN ON ET TUBE ALSO AND DOES NOT LET ME PERFORM ORAL CARE WELL. Addendum: 08/18/18 at 1408 by FRANKLIN TUBBS RN RN DISREGARD BLISTER TO LEFT BUTTOCK CORRECT LOCATION IS RIGHT BUTTOCK
[2018-08-18] MEDS: FENTANYL 2500MCG+NS 250ML 250 ML IV PRN (11:06)
--- NOTE | 2018-08-18 12:00 | NUR ---
NO ACUTE CHANGES. DR PARISI HAS MEDE ROUNDS. RESPIRATORY THERAPY HAS ADVANCED ET TUBE TO 25CM DIRECTED
[2018-08-18] MEDS ORDERED: HYDRALAZINE HCL 25 MG TABLET PO SCH (13:00)
[2018-08-18] MEDS: MIDAZOLAM 100MG-0.9% NS 100ML 100 ML IV PRN (13:29)
[2018-08-18] MEDS: INSULIN GLARGINE 100 UNITS/ML 10 ML VIAL SQ SCH (20:11)
[2018-08-18] MEDS: LISINOPRIL 40 MG TABLET PO SCH (22:09)
[2018-08-19] VITALS (28 sets, daily range): BP systolic 128–168; BP diastolic 43–85
[2018-08-19] MEDS: HYDRALAZINE HCL 25 MG TABLET PO SCH ×4 (01:24→19:55)
[2018-08-19] MEDS: ALBUTEROL SULFATE 0.083% 2.5 MG/3 ML INH IH SCH ×6 (01:33→21:30)
[2018-08-19] MEDS: SUCRALFATE 1 GM/10 ML PO SCH ×4 (01:51→21:13)
[2018-08-19] MEDS: FENTANYL 2500MCG+NS 250ML 250 ML IV PRN (02:17)
[2018-08-19 03:55] LABS: HEMATOCRIT 30.2 % (36-48); MEAN CORPUSCULAR HEMOGLOBIN 28.2 pg (27.0-33.0); MEAN CORPUSCULAR HGB CONC 33.6 g/dL (32.0-36.0); MEAN CORPUSCULAR VOLUME 84.1 fL (79-99); NUCLEATED RED BLOOD CELLS 0.1 % (0.0-0.19); PLATELET COUNT (AUTO) 216 K/uL (130-400); RED BLOOD CELL COUNT(AUTO) 3.59 MIL/uL (4.00-5.50); RED CELL DISTRIBUTION WIDTH 15.3 % (11.0-15.5); WHITE BLOOD COUNT (AUTO) 10.9 K/uL (4.8-10.8)
[2018-08-19 04:03] LABS: CREATININE 0.8 mg/dL (0.5-1.5); POTASSIUM 5.1 mmol/L (3.5-5.1)
[2018-08-19 04:08] LABS: INR 0.95 (0.85-1.15); PARTIAL THROMBOPLASTIN TIME 23.6 SEC (26.3-35.5)
[2018-08-19] MEDS: INSULIN HUMULIN R 100 UNIT/ML 3ML SQ SCH ×6 (04:42→20:00)
[2018-08-19] MEDS: METOCLOPRAMIDE 10 MG/2 ML VIAL IVP SCH ×3 (06:28→21:14)
[2018-08-19] MEDS: HEPARIN SODIUM 5000UNIT/ML 1ML VIAL SQ SCH (06:41)
[2018-08-19] MEDS: BUDESONIDE 0.5 MG/2 ML INH IH SCH ×2 (06:55→18:35)
--- NOTE | 2018-08-19 07:30 | NUR ---
DR MOORE HERE TO SEE PT UPDATED. HE ASSESSED PT, REVIEWED LABS, CXR, VENT SETTINGS. AWARE OF PENDING SCHEDULED SURGERY FOR TRACHE TODAY. DAUGHTER IN ROOM. QUESTIONS ASKED & ANSWERED IN DETAIL BY . ORDERS RECEIVED AND CARRIED OUT.
[2018-08-19] MEDS ORDERED: PHARMACY COMMUNICATION MISC SCH ×2 (08:00→14:45)
[2018-08-19] MEDS: FAMOTIDINE/PF 20 MG/2 ML VIAL IV SCH ×2 (08:42→21:14)
[2018-08-19] MEDS: HYDRALAZINE HCL 20 MG/ML VIAL IV PRN (08:42)
[2018-08-19] MEDS: DEXAMETHASONE SOD PHOSPHATE 4 MG/ML 1ML VIAL IVP SCH ×2 (08:42→21:14)
--- NOTE | 2018-08-19 09:00 | NUR ---
0900 scheduled po meds not given due to npo status pending trache placement.
[2018-08-19] MEDS: MIDAZOLAM 100MG-0.9% NS 100ML 100 ML IV PRN (10:47)
[2018-08-19] MEDS ORDERED: LIDOCAINE 1%-EPI 1:100,000 20 ML VIAL IJ ONE (12:28)
[2018-08-19] MEDS ORDERED: PROPOFOL 10 MG/ML 20ML VIAL IV ONE (12:39)
[2018-08-19] MEDS ORDERED: ROCURONIUM 10MG/1ML SYR 10 MG/ML ML ONE (12:40)
--- NOTE | 2018-08-19 13:01 | NUR ---
TO O.R. VIA BED WITH DOLLYMAN, BRET HOLDEN AND O.R. NURSE. PORTABLE MONITORING, PORTABLE O2, DOLLYMAN AMBU BAGGING AND VERSED & FENTANYL DRIPS INFUSING AT SAME RATES. NO APPARENT DISTRESS NOTED.
--- NOTE | 2018-08-19 13:55 | NUR ---
S/P TRACHE #6 SHILEY SEDATED. R.T. HERE & CONNECTED ET TUBE TO VENT ON PRESCRIBED VENT SETTINGS. RESUMED BEDSIDE MONITORING. SINUS SONIYA HR 56. NO ECTOPY. WILL CONTINUE TO MONITOR.
--- NOTE | 2018-08-19 14:15 | NUR ---
DAUGHTER HERE UPDATED.
--- NOTE | 2018-08-19 14:40 | NUR ---
SPOUSE HERE. UPDATED. NO OTHER VISITORS IN ROOM AT THIS TIME. PATIENT WITH V/S STABLE AND AFEBRILE. TRACHE WITH SMALL AMOUNT OF SEROUS SANGUINOUS DRAINAGE NOTED.
[2018-08-19] MEDS: ZINC OXIDE OINT 30GM TUBE TP SCH (14:57)
[2018-08-19] MEDS: AMLODIPINE BESYLATE 5 MG TAB PO SCH (14:57)
--- NOTE | 2018-08-19 15:47 | NUR ---
DR RISO HERE TO SEE PT UPDATED. NO NEW ORDERS AT THIS TIME.
--- NOTE | 2018-08-19 16:00 | NUR ---
PEG TUBE FEEDING RESUMED 30ML/HR. HOB ELEVATED 40 DEGREES. EASILY AROUSABLE. RAISES BILATERAL UPPER EXTREMITIES TOWARDS TRACHE. BILATERAL HANDS IN MITTS. DAUGHTERS AT BEDSIDE.
--- NOTE | 2018-08-19 19:00 | NUR ---
ASSESSMENT RESTING IN BED WITH HOB 30 DEGREES. TOLERATING PEG TUBE FEEDING 30ML/HR. TRACHE WITH SMALL AMT OF SEROUS SANGUINOUS DRAINAGE NOTED. FAMILY AT BEDSIDE. ENDORSED CARE TO PM NURSE. Addendum: 08/19/18 at 1906 by ANTON MEYER RN RN Amended: Links added.
--- NOTE | 2018-08-19 20:12 | NUR ---
ASSESSMENT REMAINS ON VENT WITH ORDERED SETTINGS AND SEDATION. ASSESSMENT COMPLETED. SEE FLOW SHEET. FAMILY MEMBER AT BEDSIDE AND QUESTIONS ANSWERED. ENCOURAGED TO CALL FOR WANT OR NEEDS. Addendum: 08/19/18 at 2013 by LEAH KASPER RN RN Amended: Links added.
[2018-08-19] MEDS ORDERED: DEXAMETHASONE SOD PHOSPHATE 4 MG/ML 1ML VIAL IVP SCH (21:00)
[2018-08-19] MEDS: LISINOPRIL 40 MG TABLET PO SCH (21:13)
[2018-08-19] MEDS: INSULIN GLARGINE 100 UNITS/ML 10 ML VIAL SQ SCH (21:22)
[2018-08-20] VITALS (25 sets, daily range): BP systolic 95–181; BP diastolic 33–103
[2018-08-20] MEDS: MIDAZOLAM 100MG-0.9% NS 100ML 100 ML IV PRN (01:01)
[2018-08-20] MEDS: FENTANYL 2500MCG+NS 250ML 250 ML IV PRN (01:01)
[2018-08-20] MEDS: INSULIN HUMULIN R 100 UNIT/ML 3ML SQ SCH ×6 (01:05→20:00)
[2018-08-20] MEDS: ALBUTEROL SULFATE 0.083% 2.5 MG/3 ML INH IH SCH ×6 (01:17→21:47)
[2018-08-20] MEDS: SUCRALFATE 1 GM/10 ML PO SCH ×4 (02:17→21:30)
[2018-08-20] MEDS: HYDRALAZINE HCL 25 MG TABLET PO SCH ×4 (02:17→20:24)
[2018-08-20] MEDS: METOCLOPRAMIDE 10 MG/2 ML VIAL IVP SCH ×3 (06:39→21:30)
[2018-08-20] MEDS: BUDESONIDE 0.5 MG/2 ML INH IH SCH ×2 (07:00→18:16)
[2018-08-20] MEDS: AMLODIPINE BESYLATE 5 MG TAB PO SCH (08:27)
[2018-08-20] MEDS: FAMOTIDINE/PF 20 MG/2 ML VIAL IV SCH ×2 (08:28→21:30)
[2018-08-20] MEDS: DEXAMETHASONE SOD PHOSPHATE 4 MG/ML 1ML VIAL IVP SCH ×2 (08:28→21:30)
[2018-08-20] MEDS: LEVOFLOXACIN 750 MG/D5W 150 ML 150 ML IV SCH (08:28)
[2018-08-20] MEDS: HEPARIN SODIUM 5000UNIT/ML 1ML VIAL SQ SCH ×2 (08:29→21:38)
[2018-08-20] MEDS: ZINC OXIDE OINT 30GM TUBE TP SCH (08:33)
[2018-08-20] MEDS: HYDRALAZINE HCL 20 MG/ML VIAL IV PRN ×2 (09:47→18:45)
--- NOTE | 2018-08-20 12:55 | NUR ---
PATIENT PLACED ON TRACH COLLAR AT THIS TIME
--- NOTE | 2018-08-20 14:37 | NUR ---
RD Follow up Pt tube feeding rate at 35ml/hr with 30ml residuals. RN with no nutrition concerns at this time. Pt LBM 08/14/18; Rec to add stool softener/laxative if constipation when medically feasible. RD recommend to add Jeramy BID, 60ml ProMod BID, Vitamin C for wound healing support. Pt monitored labs: Glu 177, BUN 70, Ca 8.3. RD to continue to monitor. Please notify RD as nutritional concerns arise. Thank you. Addendum: 08/20/18 at [address] RD Amended: Links added.
--- NOTE | 2018-08-20 19:31 | NUR ---
Held CPT at this time. Patient was just placed back on ventilatory due to increase WOB, tachypnea, and desaturating (88-90%). Patient is very restless, and sedation has been restarted by Ronaldo AGUIAR. Addendum: 08/20/18 at 2020 by BEBO HOPSON, RT RT Amended: Links added.
[2018-08-20] MEDS: LISINOPRIL 40 MG TABLET PO SCH (20:23)
[2018-08-20] MEDS: INSULIN GLARGINE 100 UNITS/ML 10 ML VIAL SQ SCH (21:40)
[2018-08-21] VITALS (22 sets, daily range): BP systolic 114–163; BP diastolic 18–95
[2018-08-21] MEDS: INSULIN HUMULIN R 100 UNIT/ML 3ML SQ SCH ×7 (00:23→21:33)
[2018-08-21] MEDS: ALBUTEROL SULFATE 0.083% 2.5 MG/3 ML INH IH SCH ×6 (01:18→21:46)
[2018-08-21] MEDS: SUCRALFATE 1 GM/10 ML PO SCH ×4 (02:34→20:09)
[2018-08-21] MEDS: HYDRALAZINE HCL 25 MG TABLET PO SCH ×4 (02:34→19:49)
[2018-08-21] MEDS: BUDESONIDE 0.5 MG/2 ML INH IH SCH ×2 (07:41→18:05)
[2018-08-21 08:35] LABS: MAGNESIUM 2.6 mg/dL (1.80-2.40); PHOSPHORUS 3.9 mg/dL (2.5-4.9)
[2018-08-21] MEDS: FAMOTIDINE/PF 20 MG/2 ML VIAL IV SCH ×2 (08:37→20:09)
[2018-08-21] MEDS: METOCLOPRAMIDE 10 MG/2 ML VIAL IVP SCH ×3 (08:37→21:32)
[2018-08-21] MEDS: DEXAMETHASONE SOD PHOSPHATE 4 MG/ML 1ML VIAL IVP SCH (08:37)
[2018-08-21] MEDS: AMLODIPINE BESYLATE 5 MG TAB PO SCH (08:38)
[2018-08-21] MEDS: ZINC OXIDE OINT 30GM TUBE TP SCH (08:40)
[2018-08-21] MEDS: HEPARIN SODIUM 5000UNIT/ML 1ML VIAL SQ SCH ×2 (08:41→20:11)
[2018-08-21 08:43] LABS: BASOPHILS % (AUTO) 0.2 % (0.0-5.0); EOSINOPHILS % (AUTO) 0.2 % (0.0-8.0); HEMATOCRIT 27.9 % (36-48); LYMPHOCYTES % (AUTO) 4.4 % (21.0-51.0); MEAN CORPUSCULAR HEMOGLOBIN 26.8 pg (27.0-33.0); MEAN CORPUSCULAR HGB CONC 31.9 g/dL (32.0-36.0); MONOCYTES % (AUTO) 2.7 % (3.0-13.0); NEUTROPHILS % (AUTO) 92.5 % (40.0-77.0); PLATELET COUNT (AUTO) 223 K/uL (130-400); RED BLOOD CELL COUNT(AUTO) 3.33 MIL/uL (4.00-5.50); RED CELL DISTRIBUTION WIDTH 15.6 % (11.0-15.5); WHITE BLOOD COUNT (AUTO) 15.8 K/uL (4.8-10.8)
[2018-08-21] MEDS ORDERED: MORPHINE SULFATE 2 MG/ML 1ML SYG IVP PRN (09:00)
--- NOTE | 2018-08-21 14:50 | NUR ---
LTACH REFERRAL SPOKE TO PADMINI ROB, COMBINATION MAN AT [facility] WHO STATED WILL NOT BE ABLE TO ACCOMMODATE A JILLIAN CASE AT THIS TIME Addendum: 08/21/18 at 1454 by JAIMIE WEBB CM Amended: Links added.
[2018-08-21] MEDS: LISINOPRIL 40 MG TABLET PO SCH (20:09)
[2018-08-21] MEDS: INSULIN GLARGINE 100 UNITS/ML 10 ML VIAL SQ SCH (20:10)
[2018-08-21] MEDS: PROPOFOL 1000 MG/100 ML IV PRN (21:09)
--- NOTE | 2018-08-21 21:19 | NUR ---
SEDATION PATIENT AGITATED. PERSISTENTLY MOVING ARMS TOWARDS TRACHEOSTOMY, KNOCKING VENTILATOR CONNECTION OFF. RESPIRATORY RATE IN 30-40'S PATIENT SPO2 84-88%. HEART RATE ELEVATED 110'S. DAUGHTER AT BEDSIDE. MORPHINE GIVEN TO ELIMINATE POSSIBLE PAIN. AGITATION CONTINUES. SEDATION INITIATED. FAMILY IN AGREEMENT.
[2018-08-22] VITALS (24 sets, daily range): BP systolic 105–149; BP diastolic 32–68
[2018-08-22] MEDS: PROPOFOL 1000 MG/100 ML IV PRN ×5 (00:23→20:50)
[2018-08-22] MEDS: INSULIN HUMULIN R 100 UNIT/ML 3ML SQ SCH ×6 (00:35→20:00)
[2018-08-22] MEDS: ALBUTEROL SULFATE 0.083% 2.5 MG/3 ML INH IH SCH ×6 (02:00→22:03)
[2018-08-22] MEDS: HYDRALAZINE HCL 25 MG TABLET PO SCH ×4 (02:42→20:45)
[2018-08-22] MEDS: SUCRALFATE 1 GM/10 ML PO SCH ×4 (02:42→20:40)
[2018-08-22 04:18] LABS: HEMATOCRIT 24.5 % (36-48); MEAN CORPUSCULAR HGB CONC 32.2 g/dL (32.0-36.0); MEAN CORPUSCULAR VOLUME 84.1 fL (79-99); PLATELET COUNT (AUTO) 197 K/uL (130-400); RED BLOOD CELL COUNT(AUTO) 2.91 MIL/uL (4.00-5.50); RED CELL DISTRIBUTION WIDTH 15.8 % (11.0-15.5); WHITE BLOOD COUNT (AUTO) 12.9 K/uL (4.8-10.8)
[2018-08-22 04:29] LABS: MAGNESIUM 2.6 mg/dL (1.80-2.40); PHOSPHORUS 3.2 mg/dL (2.5-4.9); POTASSIUM 4.4 mmol/L (3.5-5.1)
[2018-08-22] MEDS: METOCLOPRAMIDE 10 MG/2 ML VIAL IVP SCH ×3 (05:23→22:00)
[2018-08-22] MEDS: BUDESONIDE 0.5 MG/2 ML INH IH SCH ×2 (05:29→18:06)
[2018-08-22] MEDS ORDERED: MORPHINE SULFATE 2 MG/ML 1ML SYG IVP PRN (07:00)
--- NOTE | 2018-08-22 07:30 | NUR ---
REPORT REPORT GIVEN TO COSME NAVAS. CARE ENDORSED
[2018-08-22 08:09] LABS: % IRON SATURATION 11.8 % (22-44)
[2018-08-22] MEDS: LEVOFLOXACIN 750 MG/D5W 150 ML 150 ML IV SCH (09:31)
[2018-08-22] MEDS: DEXAMETHASONE SOD PHOSPHATE 4 MG/ML 1ML VIAL IVP SCH (09:31)
[2018-08-22] MEDS: FAMOTIDINE/PF 20 MG/2 ML VIAL IV SCH ×2 (09:31→20:47)
[2018-08-22] MEDS: LUBIPROSTONE 24 MCG CAP PO SCH ×2 (09:32→17:00)
[2018-08-22] MEDS: AMLODIPINE BESYLATE 5 MG TAB PO SCH (09:32)
[2018-08-22] MEDS: ZINC OXIDE OINT 30GM TUBE TP SCH (09:33)
[2018-08-22] MEDS: HEPARIN SODIUM 5000UNIT/ML 1ML VIAL SQ SCH ×2 (09:38→20:42)
[2018-08-22] MEDS: ZOSYN 3.375GM+NS 50ML 50 ML IV SCH ×2 (13:59→20:47)
--- NOTE | 2018-08-22 15:05 | NUR ---
Nutrition f/u: COSME Parmar requesting bolus feeding regimen for pt. Nursing staff to begin teaching bolus feedings. RD to change formula at a continuous flow first. Will monitor closely, if new formula is tolerated will change feeding regimen to bolus. Recommendations: Glucerna @45ml/hr, 130ml flush Q6H. Consult RD as nutrition concerns arise. Addendum: 08/22/18 at 1523 [address]IA RAMÍREZ RD RD Amended: Links added.
--- NOTE | 2018-08-22 20:00 | NUR ---
ASSESSMENT RESTING IN BED WITH HOB 30 DEGREES. TRACH WITH SMALL AMT OF SEROUS SANGUINOUS DRAINAGE NOTED. FAMILY AT BEDSIDE. ASSESSMENT COMPLETED, SEE FLOW SHEET
[2018-08-22] MEDS: LISINOPRIL 40 MG TABLET PO SCH (20:48)
[2018-08-22] MEDS: INSULIN GLARGINE 100 UNITS/ML 10 ML VIAL SQ SCH (20:49)
[2018-08-23] VITALS (24 sets, daily range): BP systolic 116–180; BP diastolic 45–84
[2018-08-23] MEDS: ALBUTEROL SULFATE 0.083% 2.5 MG/3 ML INH IH SCH ×6 (01:43→22:04)
[2018-08-23] MEDS: PROPOFOL 1000 MG/100 ML IV PRN ×6 (02:12→22:19)
[2018-08-23] MEDS: SUCRALFATE 1 GM/10 ML PO SCH ×4 (02:40→21:37)
[2018-08-23] MEDS: HYDRALAZINE HCL 25 MG TABLET PO SCH ×4 (02:40→21:57)
[2018-08-23 03:32] LABS: MEAN CORPUSCULAR VOLUME 84.9 fL (79-99); PLATELET COUNT (AUTO) 186 K/uL (130-400); RED CELL DISTRIBUTION WIDTH 16.1 % (11.0-15.5); WHITE BLOOD COUNT (AUTO) 11.6 K/uL (4.8-10.8)
[2018-08-23 03:46] LABS: B-TYPE NATRIURETIC PEPTIDE 447 pg/mL (0-100)
[2018-08-23 03:49] LABS: ALBUMIN 1.3 g/dL (3.5-5.0); BILIRUBIN,TOTAL 0.5 mg/dL (0.2-1.0); CREATININE 1.1 mg/dL (0.5-1.5); POTASSIUM 4.3 mmol/L (3.5-5.1); TOTAL PROTEIN, SERUM 5.1 g/dL (6.0-8.3)
[2018-08-23] MEDS: INSULIN HUMULIN R 100 UNIT/ML 3ML SQ SCH ×6 (04:00→20:00)
[2018-08-23] MEDS: ZOSYN 3.375GM+NS 50ML 50 ML IV SCH ×3 (04:44→21:37)
[2018-08-23] MEDS: METOCLOPRAMIDE 10 MG/2 ML VIAL IVP SCH ×3 (05:20→21:57)
[2018-08-23] MEDS: BUDESONIDE 0.5 MG/2 ML INH IH SCH ×2 (06:28→18:26)
--- NOTE | 2018-08-23 07:32 | NUR ---
REPORT REPORT GIVEN TO LELA AGUIAR
[2018-08-23] MEDS: LUBIPROSTONE 24 MCG CAP PO SCH (08:00)
[2018-08-23] MEDS: AMLODIPINE BESYLATE 5 MG TAB PO SCH (09:07)
[2018-08-23] MEDS: FAMOTIDINE/PF 20 MG/2 ML VIAL IV SCH ×2 (09:07→21:37)
[2018-08-23] MEDS: HEPARIN SODIUM 5000UNIT/ML 1ML VIAL SQ SCH ×2 (09:08→21:52)
[2018-08-23] MEDS: ZINC OXIDE OINT 30GM TUBE TP SCH (09:08)
[2018-08-23] MEDS ORDERED: FENTANYL CITRATE PF 50 MCG/1 ML 2ML VIAL IVP SCH (11:45)
[2018-08-23 12:21] LABS: ABG BASE EXCESS 2.9 mmol/L (-2.0-3.0); ABG HCO3 23.6 mmol/L (21.0-28.0); ABG OXYGEN SATURATION 97.2 % (95.0-99.0); ABG PCO2 27 mmHg (32-45)
[2018-08-23] MEDS ORDERED: IOHEXOL 350 MG/ML 100ML INFUS..BTL IV ONE (12:27)
[2018-08-23] MEDS: LACTULOSE 20 GM/30 ML UDCUP PO SCH ×4 (12:42→23:54)
--- NOTE | 2018-08-23 13:18 | NUR ---
RD Update Pt formula modified to Glucerna 1.5 yesterday. Pt currently tolerating tube feeding formula as per RN. Please notify RD as additional nutrition concerns arise. Thank you.
--- NOTE | 2018-08-23 20:00 | NUR ---
ASSESSMENT REMAINS ON VENT WITH ORDERED SETTINGS AND SEDATION. ASSESSMENT COMPLETED SEE FLOW SHEET. FAMILY MEMBER AT BEDSIDE AND QUESTIONS ANSWERED. INCONTINENT X2 LARGE LIQUID STOOL. CLEANED AND ANNIE CARE GIVEN. Addendum: 08/23/18 at 2107 by LEAH KASPER RN RN Amended: Links added.
[2018-08-23] MEDS ORDERED: ENOXAPARIN SODIUM 100 MG/1 ML SQ SCH (21:00)
[2018-08-23] MEDS ORDERED: HEPARIN SODIUM 5000UNIT/ML 1ML VIAL SQ SCH (21:00)
[2018-08-23] MEDS ORDERED: ENOXAPARIN SODIUM 1 MG/KG SQ SCH (21:00)
[2018-08-23] MEDS: LISINOPRIL 40 MG TABLET PO SCH (21:37)
[2018-08-23] MEDS: INSULIN GLARGINE 100 UNITS/ML 10 ML VIAL SQ SCH (21:51)
[2018-08-24] VITALS (25 sets, daily range): BP systolic 100–158; BP diastolic 40–106
[2018-08-24] MEDS: INSULIN HUMULIN R 100 UNIT/ML 3ML SQ SCH ×6 (00:23→21:04)
[2018-08-24] MEDS: ALBUTEROL SULFATE 0.083% 2.5 MG/3 ML INH IH SCH ×6 (01:53→21:44)
[2018-08-24] MEDS: HYDRALAZINE HCL 25 MG TABLET PO SCH ×4 (02:00→21:00)
[2018-08-24] MEDS: SUCRALFATE 1 GM/10 ML PO SCH ×4 (03:03→21:00)
[2018-08-24] MEDS: PROPOFOL 1000 MG/100 ML IV PRN ×4 (03:03→19:38)
[2018-08-24 03:43] LABS: HEMATOCRIT 25.3 % (36-48); MEAN CORPUSCULAR HEMOGLOBIN 27.1 pg (27.0-33.0); MEAN CORPUSCULAR HGB CONC 32.1 g/dL (32.0-36.0); MEAN CORPUSCULAR VOLUME 84.6 fL (79-99); PLATELET COUNT (AUTO) 268 K/uL (130-400); RED BLOOD CELL COUNT(AUTO) 2.98 MIL/uL (4.00-5.50); RED CELL DISTRIBUTION WIDTH 16.1 % (11.0-15.5); WHITE BLOOD COUNT (AUTO) 15.8 K/uL (4.8-10.8)
[2018-08-24 03:45] LABS: CREATININE 1.2 mg/dL (0.5-1.5); POTASSIUM 3.9 mmol/L (3.5-5.1)
[2018-08-24] MEDS: LACTULOSE 20 GM/30 ML UDCUP PO SCH (03:52)
[2018-08-24 03:53] LABS: B-TYPE NATRIURETIC PEPTIDE 668 pg/mL (0-100)
[2018-08-24] MEDS: ZOSYN 3.375GM+NS 50ML 50 ML IV SCH ×3 (04:01→21:04)
[2018-08-24 05:21] LABS: ABG BASE EXCESS -0.7 mmol/L (-2.0-3.0); ABG HCO3 23.6 mmol/L (21.0-28.0); ABG OXYGEN SATURATION 88.7 % (95.0-99.0); ABG PCO2 38 mmHg (32-45)
[2018-08-24] MEDS: METOCLOPRAMIDE 10 MG/2 ML VIAL IVP SCH ×3 (06:00→21:00)
[2018-08-24] MEDS: BUDESONIDE 0.5 MG/2 ML INH IH SCH ×2 (06:05→17:52)
[2018-08-24] MEDS: HEPARIN SODIUM 5000UNIT/ML 1ML VIAL SQ SCH ×2 (09:00→21:02)
[2018-08-24] MEDS ORDERED: LACTULOSE 20 GM/30 ML UDCUP PO PRN (09:00)
[2018-08-24] MEDS: AMLODIPINE BESYLATE 5 MG TAB PO SCH (09:00)
[2018-08-24] MEDS: FAMOTIDINE/PF 20 MG/2 ML VIAL IV SCH ×2 (09:00→21:00)
[2018-08-24] MEDS: ZINC OXIDE OINT 30GM TUBE TP SCH (09:01)
--- NOTE | 2018-08-24 11:49 | NUR ---
NUTRITION F/U: Pt CONTINUES TO TOLERATE CURRENT FEEDING REGIMEN. CURRENTLY Pt'S FEEDING ON HOLD FOR POSSIBLE BRONCHOSCOPY. Pt WITH BM, LACTULOSE PRN, CURRENTLY WITH DIARRHEA- WILL CONTINUE TO MONITOR. PER COSME VOGEL, Pt NOT PENDING DISCHARGE AT THE MOMENT. WILL HOLD ON BOLUS FEEDING SCHEDULE. RD TO CONTINUE MONITORING Pt'S NUTRITIONAL STATUS. PLEASE CONSULT SOONER IF NUTRITION CONCERNS ARISE. Addendum: 08/24/18 at 1152 [address] RAMÍREZ RD RD Amended: Links added.
[2018-08-24] MEDS: FUROSEMIDE 10 MG/ML 4ML VIAL IVP SCH ×2 (13:58→21:44)
[2018-08-24] MEDS: METHYLPREDNISOLONE SOD SUCC 125MG/2ML VIAL IVP SCH ×2 (15:11→21:00)
--- NOTE | 2018-08-24 20:00 | NUR ---
DESATURATION DR. LOPEZ UPDATED ON PT STATUS. PT CONTINUES TO DESAT WITH ELEVATED PIP PRESSURES IN THE 70'S DESPITE INCREASE OF PEEP TO 12. NEW VENTILATOR SETTINGS OBTAINED; SEDATION STARTED REQUESTED BY . WILL OBTAIN ABG 1 HOUR AFTER VENT SETTING CHANGES. 2129- DR LOPEZ NOTIFIED OF ABG RESULTS. RATE CHANGES MADE TO VENTILATOR ORDERED.
[2018-08-24] MEDS ORDERED: CISATRACURIUM BESYLATE 2 MG/ML 10ML VIAL IVP SCH (20:15)
[2018-08-24] MEDS ORDERED: CISATRACURIUM BESYLATE IVP SCH (20:45)
[2018-08-24] MEDS ORDERED: SODIUM CHLORIDE 0.9% IVP SCH (20:45)
[2018-08-24] MEDS: LISINOPRIL 40 MG TABLET PO SCH (20:59)
[2018-08-24] MEDS: INSULIN GLARGINE 100 UNITS/ML 10 ML VIAL SQ SCH (21:03)
[2018-08-24 21:30] LABS: ABG BASE EXCESS -5.1 mmol/L (-2.0-3.0); ABG OXYGEN SATURATION 76.8 % (95.0-99.0); ABG PCO2 69 mmHg (32-45)
[2018-08-24] MEDS: FENTANYL 2500MCG+NS 250ML 250 ML IV PRN (21:45)
[2018-08-24] MEDS: MIDAZOLAM 100MG-0.9% NS 100ML 100 ML IV PRN (21:46)
[2018-08-25] VITALS (40 sets, daily range): BP systolic 69–180; BP diastolic 20–93
[2018-08-25] MEDS: INSULIN HUMULIN R 100 UNIT/ML 3ML SQ SCH ×6 (00:15→21:19)
[2018-08-25] MEDS: ALBUTEROL SULFATE 0.083% 2.5 MG/3 ML INH IH SCH ×8 (01:39→21:36)
[2018-08-25 03:44] LABS: ABG HCO3 21.6 mmol/L (21.0-28.0); ABG OXYGEN SATURATION 80.4 % (95.0-99.0); ABG PCO2 83 mmHg (32-45)
[2018-08-25] MEDS: HYDRALAZINE HCL 25 MG TABLET PO SCH ×4 (04:04→20:00)
[2018-08-25] MEDS: ZOSYN 3.375GM+NS 50ML 50 ML IV SCH ×3 (04:04→21:19)
[2018-08-25] MEDS: SUCRALFATE 1 GM/10 ML PO SCH ×4 (04:04→21:19)
[2018-08-25] MEDS: METHYLPREDNISOLONE SOD SUCC 125MG/2ML VIAL IVP SCH ×4 (04:04→21:21)
[2018-08-25] MEDS: METOCLOPRAMIDE 10 MG/2 ML VIAL IVP SCH ×3 (04:06→21:21)
[2018-08-25] MEDS: FUROSEMIDE 10 MG/ML 4ML VIAL IVP SCH ×3 (04:06→21:20)
[2018-08-25 04:10] LABS: BASOPHILS % (AUTO) 0.1 % (0.0-5.0); EOSINOPHILS % (AUTO) 0.1 % (0.0-8.0); HEMATOCRIT 27.8 % (36-48); LYMPHOCYTES % (AUTO) 2.2 % (21.0-51.0); MEAN CORPUSCULAR HEMOGLOBIN 27.8 pg (27.0-33.0); MEAN CORPUSCULAR HGB CONC 31.6 g/dL (32.0-36.0); MEAN CORPUSCULAR VOLUME 88.1 fL (79-99); MONOCYTES % (AUTO) 0.5 % (3.0-13.0); NEUTROPHILS % (AUTO) 97.1 % (40.0-77.0); NUCLEATED RED BLOOD CELLS 0.2 % (0.0-0.19); PLATELET COUNT (AUTO) 309 K/uL (130-400); RED BLOOD CELL COUNT(AUTO) 3.15 MIL/uL (4.00-5.50); RED CELL DISTRIBUTION WIDTH 16.8 % (11.0-15.5); WHITE BLOOD COUNT (AUTO) 18.4 K/uL (4.8-10.8)
[2018-08-25 04:24] LABS: CREATININE 1.9 mg/dL (0.5-1.5); MAGNESIUM 3.3 mg/dL (1.80-2.40); PHOSPHORUS 8.1 mg/dL (2.5-4.9)
[2018-08-25] MEDS: BUDESONIDE 0.5 MG/2 ML INH IH SCH ×2 (06:06→18:50)
[2018-08-25] MEDS ORDERED: SODIUM POLYSTYRENE SULFONATE 15 GM/60 ML ML PO SCH (07:45)
[2018-08-25] MEDS ORDERED: CALCIUM GLUCONATE 1 GM in SODIUM CHLORIDE 0.9% 50 ML IV SCH (07:45)
--- NOTE | 2018-08-25 07:45 | NUR ---
DR LOPEZ UPDATED ON LABS AND PATIENT'S CONDITION. NEW ORDERS ON CHART.
[2018-08-25] MEDS: AMLODIPINE BESYLATE 5 MG TAB PO SCH (08:01)
[2018-08-25] MEDS: SODIUM BICARB 8.4% 50ML SYRING 150 MEQ in DEXTROSE 5%-WATER 1,000 ML IV SCH ×2 (08:01→21:22)
[2018-08-25] MEDS: FAMOTIDINE/PF 20 MG/2 ML VIAL IV SCH ×2 (08:45→21:21)
[2018-08-25] MEDS ORDERED: DOPAMINE HCL 800 MG in SODIUM CHLORIDE 0.9% 240 ML IV PRN (08:45)
[2018-08-25] MEDS: HEPARIN SODIUM 5000UNIT/ML 1ML VIAL SQ SCH ×2 (08:45→21:19)
[2018-08-25] MEDS: ZINC OXIDE OINT 30GM TUBE TP SCH (08:47)
[2018-08-25] MEDS ORDERED: DOPAMINE 800MG/D5 250ML 250 ML IV ONE (08:57)
[2018-08-25] MEDS ORDERED: ENOXAPARIN SODIUM 40 MG/0.4 ML SYRINGE SQ SCH (09:00)
--- NOTE | 2018-08-25 09:00 | NUR ---
dOPAMINE DRIP STARTED ORDERED BY DR LOPEZ. PATIENT'S SON AT BEDSIDE, HE HAS BEEN UPDATED MULTIPLE TIMES THIS MORNING ON PATIENT'S CONDITION AND MEDICATIONS. ALL QUESTIONS ANSWERED. STATES HE IS CALLING FAMILY.
[2018-08-25] MEDS ORDERED: DOPAMINE 800MG/D5 250ML 250 ML IV PRN (09:30)
[2018-08-25 10:53] LABS: ABG BASE EXCESS -9.6 mmol/L (-2.0-3.0); ABG HCO3 19.3 mmol/L (21.0-28.0); ABG OXYGEN SATURATION 88.3 % (95.0-99.0); ABG PCO2 60 mmHg (32-45)
[2018-08-25] MEDS: MIDAZOLAM 100MG-0.9% NS 100ML 100 ML IV PRN (11:55)
[2018-08-25] MEDS: ROCURONIUM BROMIDE IV PRN ×3 (13:34→21:21)
[2018-08-25] MEDS: SODIUM CHLORIDE 0.9% IV PRN ×3 (13:34→21:21)
[2018-08-25] MEDS ORDERED: VANCOMYCIN PROTOCOL PER PHARMACY IV SCH (14:30)
[2018-08-25] MEDS ORDERED: COMPOUND IV REFRIGERATED 1 EACH IVSOLN MISC PRN (15:00)
[2018-08-25] MEDS: VANCOMYCIN 1.5 GM in SODIUM CHLORIDE 0.9% 250 ML IV SCH (15:22)
[2018-08-25] MEDS: FLUCONAZOLE 400 MG/NS 200 ML 200 ML IV SCH (15:23)
[2018-08-25] MEDS ORDERED: PHARMACY COMMUNICATION MISC SCH (19:30)
[2018-08-25] MEDS: LISINOPRIL 40 MG TABLET PO SCH (21:00)
[2018-08-25] MEDS: INSULIN GLARGINE 100 UNITS/ML 10 ML VIAL SQ SCH (21:18)
[2018-08-25] MEDS: ARTIFICAL TEARS SOL 15 ML OU SCH (21:22)
[2018-08-26] VITALS (32 sets, daily range): BP systolic 69–159; BP diastolic 23–73
[2018-08-26] MEDS: INSULIN HUMULIN R 100 UNIT/ML 3ML SQ SCH ×6 (00:51→20:00)
[2018-08-26] MEDS: FENTANYL 2500MCG+NS 250ML 250 ML IV PRN (00:52)
[2018-08-26] MEDS: ALBUTEROL SULFATE 0.083% 2.5 MG/3 ML INH IH SCH ×6 (01:43→22:01)
[2018-08-26] MEDS: HYDRALAZINE HCL 25 MG TABLET PO SCH (02:00)
[2018-08-26] MEDS: SUCRALFATE 1 GM/10 ML PO SCH ×4 (02:37→21:41)
[2018-08-26 03:49] LABS: MEAN CORPUSCULAR HEMOGLOBIN 26.9 pg (27.0-33.0); MEAN CORPUSCULAR HGB CONC 30.9 g/dL (32.0-36.0); MEAN CORPUSCULAR VOLUME 87.2 fL (79-99); NUCLEATED RED BLOOD CELLS 0.4 % (0.0-0.19); PLATELET COUNT (AUTO) 259 K/uL (130-400); RED BLOOD CELL COUNT(AUTO) 3.21 MIL/uL (4.00-5.50); RED CELL DISTRIBUTION WIDTH 16.6 % (11.0-15.5); WHITE BLOOD COUNT (AUTO) 23.4 K/uL (4.8-10.8)
[2018-08-26 04:06] LABS: ALBUMIN 1.3 g/dL (3.5-5.0); BILIRUBIN,TOTAL 0.5 mg/dL (0.2-1.0); CREATININE 2.4 mg/dL (0.5-1.5); POTASSIUM 4.9 mmol/L (3.5-5.1); TOTAL PROTEIN, SERUM 5.9 g/dL (6.0-8.3)
[2018-08-26] MEDS: MIDAZOLAM 100MG-0.9% NS 100ML 100 ML IV PRN (04:40)
[2018-08-26] MEDS: SODIUM CHLORIDE 0.9% IV PRN ×3 (04:40→23:38)
[2018-08-26] MEDS: ROCURONIUM BROMIDE IV PRN ×3 (04:40→23:38)
[2018-08-26] MEDS: ZOSYN 3.375GM+NS 50ML 50 ML IV SCH ×3 (04:40→20:52)
[2018-08-26] MEDS: METHYLPREDNISOLONE SOD SUCC 125MG/2ML VIAL IVP SCH ×4 (04:41→21:54)
[2018-08-26] MEDS: FUROSEMIDE 10 MG/ML 4ML VIAL IVP SCH (04:41)
[2018-08-26] MEDS: METOCLOPRAMIDE 10 MG/2 ML VIAL IVP SCH ×3 (04:43→21:39)
[2018-08-26] MEDS: ARTIFICAL TEARS SOL 15 ML OU SCH ×3 (04:43→21:43)
[2018-08-26 05:21] LABS: ABG BASE EXCESS -6.6 mmol/L (-2.0-3.0); ABG HCO3 25.9 mmol/L (21.0-28.0); ABG OXYGEN SATURATION 88.7 % (95.0-99.0); ABG PCO2 90 mmHg (32-45)
[2018-08-26] MEDS: BUDESONIDE 0.5 MG/2 ML INH IH SCH ×2 (06:25→18:19)
[2018-08-26] MEDS: HEPARIN SODIUM 5000UNIT/ML 1ML VIAL SQ SCH ×2 (08:55→21:43)
[2018-08-26] MEDS: FLUCONAZOLE 400 MG/NS 200 ML 200 ML IV SCH (08:59)
[2018-08-26] MEDS: FAMOTIDINE/PF 20 MG/2 ML VIAL IV SCH ×2 (09:00→21:38)
[2018-08-26] MEDS: ZINC OXIDE OINT 30GM TUBE TP SCH (09:14)
[2018-08-26] MEDS: SODIUM BICARB 8.4% 50ML SYRING 150 MEQ in DEXTROSE 5%-WATER 1,000 ML IV SCH (13:22)
[2018-08-26] MEDS: VANCOMYCIN 1.5 GM in SODIUM CHLORIDE 0.9% 250 ML IV SCH (15:32)
[2018-08-26] MEDS: INSULIN GLARGINE 100 UNITS/ML 10 ML VIAL SQ SCH (20:43)
[2018-08-27] VITALS (29 sets, daily range): BP systolic 107–173; BP diastolic 50–92
[2018-08-27] MEDS: ALBUTEROL SULFATE 0.083% 2.5 MG/3 ML INH IH SCH ×6 (01:41→21:44)
[2018-08-27] MEDS: MIDAZOLAM 100MG-0.9% NS 100ML 100 ML IV PRN ×2 (04:19→20:59)
[2018-08-27] MEDS: SUCRALFATE 1 GM/10 ML PO SCH ×4 (04:22→21:00)
[2018-08-27] MEDS: SODIUM BICARB 8.4% 50ML SYRING 150 MEQ in DEXTROSE 5%-WATER 1,000 ML IV SCH (04:29)
[2018-08-27] MEDS: INSULIN HUMULIN R 100 UNIT/ML 3ML SQ SCH ×6 (04:32→21:09)
[2018-08-27] MEDS: ZOSYN 3.375GM+NS 50ML 50 ML IV SCH ×3 (04:35→21:00)
[2018-08-27] MEDS: METHYLPREDNISOLONE SOD SUCC 125MG/2ML VIAL IVP SCH ×4 (04:44→21:01)
[2018-08-27] MEDS: BUDESONIDE 0.5 MG/2 ML INH IH SCH ×2 (06:32→18:41)
[2018-08-27] MEDS: METOCLOPRAMIDE 10 MG/2 ML VIAL IVP SCH ×3 (07:23→21:01)
[2018-08-27] MEDS: ARTIFICAL TEARS SOL 15 ML OU SCH ×3 (07:25→21:10)
[2018-08-27] MEDS ORDERED: PHARMACY COMMUNICATION MISC SCH (09:30)
[2018-08-27] MEDS: SODIUM CHLORIDE 0.9% IV PRN ×2 (09:58→20:59)
[2018-08-27] MEDS: ROCURONIUM BROMIDE IV PRN ×2 (09:58→20:59)
[2018-08-27] MEDS: FAMOTIDINE/PF 20 MG/2 ML VIAL IV SCH ×2 (11:01→21:01)
[2018-08-27] MEDS: FLUCONAZOLE 400 MG/NS 200 ML 200 ML IV SCH (11:01)
[2018-08-27] MEDS: ZINC OXIDE OINT 30GM TUBE TP SCH (11:02)
[2018-08-27] MEDS: HEPARIN SODIUM 5000UNIT/ML 1ML VIAL SQ SCH ×2 (11:03→21:07)
[2018-08-27] MEDS: FENTANYL 2500MCG+NS 250ML 250 ML IV PRN (11:16)
[2018-08-27 12:28] LABS: ABG BASE EXCESS -1.5 mmol/L (-2.0-3.0); ABG HCO3 30.3 mmol/L (21.0-28.0); ABG OXYGEN SATURATION 85.3 % (95.0-99.0); ABG PCO2 90 mmHg (32-45)
[2018-08-27] MEDS ORDERED: SODIUM BICARB 8.4% 50ML SYRINGE IVP STA (12:38)
[2018-08-27] MEDS ORDERED: SODIUM BICARB 50MEQ 50ML VIAL ONE (12:43)
[2018-08-27] MEDS: FUROSEMIDE 10 MG/ML 4ML VIAL IV SCH (13:21)
[2018-08-27 15:08] LABS: ABG BASE EXCESS 1.5 mmol/L (-2.0-3.0); ABG HCO3 30.6 mmol/L (21.0-28.0); ABG PCO2 69 mmHg (32-45)
--- NOTE | 2018-08-27 17:00 | NUR ---
DR PARISI ROUNDED ON PATIENT TODAY. SON WAS AT BEDSIDE AND MD SPOKE TO HIM AND UPDATED HIM REGARDING PATIENT STATUS AND PLAN OF CARE. QUESTIONS ADDRESSED AND ANSWERED IN DETAIL. MD MADE SOME VENT CHANGES. NOTIFIED R.T. PATIENT CONTINUES SEDATED. PEG FEEDINGS WITH RESIDUALS (200ML). FEEDINGS PLACED ON HOLD FOR NOW. HEAD OF BED ELEVATED TO PREVENT ASPIRATION.
[2018-08-27] MEDS: VANCOMYCIN 1.5 GM in SODIUM CHLORIDE 0.9% 250 ML IV SCH (17:23)
[2018-08-27] MEDS: INSULIN GLARGINE 100 UNITS/ML 10 ML VIAL SQ SCH (21:08)
[2018-08-27] MEDS ORDERED: DOPAMINE 800MG/D5 250ML 250 ML IV PRN (21:30)
[2018-08-28] VITALS (22 sets, daily range): BP systolic 120–179; BP diastolic 49–99
[2018-08-28] MEDS: SODIUM BICARB 8.4% 50ML SYRING 200 MEQ in DEXTROSE 5%-WATER 950 ML IV SCH ×2 (00:20→09:20)
[2018-08-28] MEDS: FUROSEMIDE 10 MG/ML 4ML VIAL IV SCH ×2 (01:04→12:57)
[2018-08-28] MEDS: INSULIN HUMULIN R 100 UNIT/ML 3ML SQ SCH ×6 (01:08→20:59)
[2018-08-28] MEDS: ALBUTEROL SULFATE 0.083% 2.5 MG/3 ML INH IH SCH ×6 (01:27→22:16)
[2018-08-28 03:25] LABS: ABG BASE EXCESS 3.7 mmol/L (-2.0-3.0); ABG OXYGEN SATURATION 90.3 % (95.0-99.0); ABG PCO2 72 mmHg (32-45)
[2018-08-28] MEDS: METHYLPREDNISOLONE SOD SUCC 125MG/2ML VIAL IVP SCH ×4 (03:53→18:19)
[2018-08-28] MEDS: SUCRALFATE 1 GM/10 ML PO SCH ×4 (03:53→21:06)
[2018-08-28] MEDS: ZOSYN 3.375GM+NS 50ML 50 ML IV SCH ×3 (03:53→21:02)
[2018-08-28 04:19] LABS: HEMATOCRIT 23.3 % (36-48); MEAN CORPUSCULAR HEMOGLOBIN 27.7 pg (27.0-33.0); MEAN CORPUSCULAR HGB CONC 32.9 g/dL (32.0-36.0); NUCLEATED RED BLOOD CELLS 0.9 % (0.0-0.19); PLATELET COUNT (AUTO) 147 K/uL (130-400); RED BLOOD CELL COUNT(AUTO) 2.78 MIL/uL (4.00-5.50); RED CELL DISTRIBUTION WIDTH 16.5 % (11.0-15.5); WHITE BLOOD COUNT (AUTO) 10.5 K/uL (4.8-10.8)
[2018-08-28 04:27] LABS: INR 1.09 (0.85-1.15); PARTIAL THROMBOPLASTIN TIME 42.9 SEC (26.3-35.5); PROTHROMBIN TIME 11.4 SEC (9.6-11.6)
[2018-08-28 04:38] LABS: ALBUMIN 1.2 g/dL (3.5-5.0); BILIRUBIN,TOTAL 0.6 mg/dL (0.2-1.0); CREATININE 3.3 mg/dL (0.5-1.5); MAGNESIUM 3.3 mg/dL (1.80-2.40); PHOSPHORUS 8.3 mg/dL (2.5-4.9); POTASSIUM 4.3 mmol/L (3.5-5.1)
[2018-08-28] MEDS: METOCLOPRAMIDE 10 MG/2 ML VIAL IVP SCH ×3 (05:55→21:01)
[2018-08-28] MEDS: ARTIFICAL TEARS SOL 15 ML OU SCH ×3 (06:10→21:05)
[2018-08-28] MEDS: BUDESONIDE 0.5 MG/2 ML INH IH SCH ×2 (06:26→19:07)
[2018-08-28] MEDS: FAMOTIDINE/PF 20 MG/2 ML VIAL IV SCH ×2 (08:58→21:05)
[2018-08-28] MEDS: FLUCONAZOLE 400 MG/NS 200 ML 200 ML IV SCH (08:58)
[2018-08-28] MEDS: HEPARIN SODIUM 5000UNIT/ML 1ML VIAL SQ SCH ×2 (09:00→21:13)
[2018-08-28] MEDS: ZINC OXIDE OINT 30GM TUBE TP SCH (09:00)
[2018-08-28] MEDS: ROCURONIUM BROMIDE IV PRN ×2 (13:43→23:15)
[2018-08-28] MEDS: SODIUM CHLORIDE 0.9% IV PRN ×2 (13:43→23:15)
[2018-08-28] MEDS: INSULIN GLARGINE 100 UNITS/ML 10 ML VIAL SQ SCH ×2 (14:28→21:00)
[2018-08-28] MEDS: VANCOMYCIN 1.5 GM in SODIUM CHLORIDE 0.9% 250 ML IV SCH (14:32)
[2018-08-28] MEDS: MIDAZOLAM 100MG-0.9% NS 100ML 100 ML IV PRN (16:23)
--- NOTE | 2018-08-28 16:57 | NUR ---
DAV Follow up Pt remains on low rate, continuous Tube feeding, Critical condition with multiple internal chemical osorio, monitoring continued. Pt LBM 08/25/18. Pt monitored labs: BUN 120, Cr 3.3, GFR 15, Glu 235, Ca 6.4, P 8.3, Mg 3.30, AST 78, ALT 259. Rec to continue POC. Addendum: 08/28/18 at [address] Amended: Links added.
[2018-08-28] MEDS: FENTANYL 2500MCG+NS 250ML 250 ML IV PRN (22:52)
[2018-08-29] VITALS (24 sets, daily range): BP systolic 137–181; BP diastolic 42–75
[2018-08-29] MEDS: FUROSEMIDE 10 MG/ML 4ML VIAL IV SCH ×2 (00:26→13:23)
[2018-08-29] MEDS: METHYLPREDNISOLONE SOD SUCC 125MG/2ML VIAL IVP SCH ×5 (00:26→23:38)
[2018-08-29] MEDS: SODIUM BICARB 8.4% 50ML SYRING 200 MEQ in DEXTROSE 5%-WATER 950 ML IV SCH (00:27)
[2018-08-29] MEDS: INSULIN HUMULIN R 100 UNIT/ML 3ML SQ SCH ×7 (00:38→23:39)
[2018-08-29] MEDS: ALBUTEROL SULFATE 0.083% 2.5 MG/3 ML INH IH SCH ×6 (01:47→22:02)
[2018-08-29] MEDS ORDERED: HYDRALAZINE HCL 20 MG/ML VIAL ONE (02:35)
[2018-08-29] MEDS: METOCLOPRAMIDE 10 MG/2 ML VIAL IVP SCH ×4 (02:38→21:41)
[2018-08-29] MEDS: SUCRALFATE 1 GM/10 ML PO SCH ×4 (02:39→21:41)
[2018-08-29] MEDS ORDERED: HYDRALAZINE HCL 20 MG/ML VIAL IV SCH (02:45)
[2018-08-29] MEDS: MIDAZOLAM 100MG-0.9% NS 100ML 100 ML IV PRN ×2 (04:08→17:34)
[2018-08-29] MEDS: ZOSYN 3.375GM+NS 50ML 50 ML IV SCH ×3 (04:47→21:41)
[2018-08-29 05:02] LABS: HEMATOCRIT 25.4 % (36-48); MEAN CORPUSCULAR HEMOGLOBIN 27.6 pg (27.0-33.0); MEAN CORPUSCULAR HGB CONC 32.9 g/dL (32.0-36.0); PLATELET COUNT (AUTO) 166 K/uL (130-400); RED BLOOD CELL COUNT(AUTO) 3.02 MIL/uL (4.00-5.50); WHITE BLOOD COUNT (AUTO) 12.2 K/uL (4.8-10.8)
[2018-08-29 05:05] LABS: ABG HCO3 36.7 mmol/L (21.0-28.0); ABG OXYGEN SATURATION 88.8 % (95.0-99.0); ABG PCO2 92 mmHg (32-45)
[2018-08-29 05:22] LABS: INR 1.09 (0.85-1.15); PARTIAL THROMBOPLASTIN TIME 37.7 SEC (26.3-35.5); PROTHROMBIN TIME 11.4 SEC (9.6-11.6)
[2018-08-29 05:30] LABS: ALBUMIN 1.5 g/dL (3.5-5.0); BILIRUBIN,TOTAL 0.6 mg/dL (0.2-1.0); CREATININE 3.4 mg/dL (0.5-1.5); MAGNESIUM 3.2 mg/dL (1.80-2.40); PHOSPHORUS 7.5 mg/dL (2.5-4.9); POTASSIUM 4.1 mmol/L (3.5-5.1); TOTAL PROTEIN, SERUM 5.6 g/dL (6.0-8.3)
[2018-08-29] MEDS: ARTIFICAL TEARS SOL 15 ML OU SCH ×3 (05:33→21:42)
[2018-08-29] MEDS: BUDESONIDE 0.5 MG/2 ML INH IH SCH ×2 (06:27→18:36)
[2018-08-29] MEDS ORDERED: 1/2 NORMAL SALINE 1,000 ML IV SCH (07:30)
--- NOTE | 2018-08-29 07:30 | NUR ---
ASSESS: STABLE ON CURRENT SEDATION SETTINGS. AIR BED ROTATION ON.
[2018-08-29] MEDS: INSULIN GLARGINE 100 UNITS/ML 10 ML VIAL SQ SCH ×2 (09:00→21:42)
[2018-08-29] MEDS: FLUCONAZOLE 400 MG/NS 200 ML 200 ML IV SCH (09:29)
[2018-08-29] MEDS: FAMOTIDINE/PF 20 MG/2 ML VIAL IV SCH (09:29)
[2018-08-29] MEDS: HEPARIN SODIUM 5000UNIT/ML 1ML VIAL SQ SCH ×2 (09:31→21:00)
[2018-08-29] MEDS: ZINC OXIDE OINT 30GM TUBE TP SCH (09:32)
[2018-08-29] MEDS ORDERED: HYDRALAZINE HCL 20 MG/ML VIAL IV PRN (09:45)
[2018-08-29] MEDS: VANCOMYCIN 1.5 GM in SODIUM CHLORIDE 0.9% 250 ML IV SCH (16:20)
--- NOTE | 2018-08-29 18:20 | NUR ---
DR. PURVIS HERE TO SEE PT - ADVISED DAUGHTER OF NEED FOR DIALYSIS AND SHE IS IN AGREEMENT - HE ANSWERED HER QUESTIONS AND THEN HE CALLED DR. CARRERA - CONSENT SIGNED FOR INSERTION OF DIALYSIS CATHETER AND FOR HEMODIALYSIS TOMORROW.
[2018-08-29] MEDS: SODIUM CHLORIDE 0.9% IV PRN ×2 (18:29→23:46)
[2018-08-29] MEDS: ROCURONIUM BROMIDE IV PRN ×2 (18:29→23:46)
--- NOTE | 2018-08-29 22:45 | NUR ---
CPT held at this time due patient's status with desaturations Addendum: 08/29/18 at 2247 by RT KARAN RT Amended: Links added.
[2018-08-29] MEDS ORDERED: ROCURONIUM BROMIDE 10MG/1ML 5ML VL ONE (23:35)
[2018-08-29] MEDS ORDERED: SODIUM CHLORIDE 0.9% 100 ML IV ONE (23:42)
[2018-08-30] VITALS (25 sets, daily range): BP systolic 123–195; BP diastolic 52–84
--- NOTE | 2018-08-30 | NUR ---
PARALYTIC AGENT INFUSING, TOF 03/15, PATIENT IN SYNCHRONY WITH THE VENT. Addendum: 08/31/18 at 0216 by SILVER VARGHESE RN RN INCORRECT DATE-DISREGARD
[2018-08-30] MEDS: FUROSEMIDE 10 MG/ML 4ML VIAL IV SCH ×2 (01:09→13:10)
[2018-08-30] MEDS: METOCLOPRAMIDE 10 MG/2 ML VIAL IVP SCH ×4 (01:10→21:15)
[2018-08-30] MEDS: ALBUTEROL SULFATE 0.083% 2.5 MG/3 ML INH IH SCH ×6 (01:56→21:44)
--- NOTE | 2018-08-30 02:00 | NUR ---
CPT held, patient is very sensitive to movement. Desaturates easily Addendum: 08/30/18 at 2782 by BEBO HOPSON RT RT Amended: Links added.
[2018-08-30] MEDS: SUCRALFATE 1 GM/10 ML PO SCH ×5 (03:05→21:11)
[2018-08-30] MEDS: INSULIN HUMULIN R 100 UNIT/ML 3ML SQ SCH ×5 (03:57→21:18)
[2018-08-30 04:47] LABS: HEMATOCRIT 23.1 % (36-48); MEAN CORPUSCULAR HEMOGLOBIN 27.3 pg (27.0-33.0); MEAN CORPUSCULAR HGB CONC 32.4 g/dL (32.0-36.0); MEAN CORPUSCULAR VOLUME 84.1 fL (79-99); NUCLEATED RED BLOOD CELLS 0.6 % (0.0-0.19); PLATELET COUNT (AUTO) 164 K/uL (130-400); RED BLOOD CELL COUNT(AUTO) 2.74 MIL/uL (4.00-5.50); RED CELL DISTRIBUTION WIDTH 15.9 % (11.0-15.5)
[2018-08-30 04:58] LABS: CREATININE 3.6 mg/dL (0.5-1.5); POTASSIUM 4.3 mmol/L (3.5-5.1)
[2018-08-30 05:33] LABS: VANCOMYCIN LEVEL 68.9 mcg/mL (18.0-26.0)
[2018-08-30] MEDS: ARTIFICAL TEARS SOL 15 ML OU SCH ×3 (05:48→21:20)
[2018-08-30] MEDS: METHYLPREDNISOLONE SOD SUCC 125MG/2ML VIAL IVP SCH ×3 (05:48→21:14)
[2018-08-30] MEDS: MIDAZOLAM 100MG-0.9% NS 100ML 100 ML IV PRN (06:03)
[2018-08-30] MEDS: FENTANYL 2500MCG+NS 250ML 250 ML IV PRN (06:04)
[2018-08-30] MEDS: BUDESONIDE 0.5 MG/2 ML INH IH SCH ×2 (06:08→19:26)
--- NOTE | 2018-08-30 07:48 | NUR ---
ROUNDS DR. GALE PURVIS IN TO SEE PATIENT. STATES ONCE DIALYSIS ACCESS IS AVAILABLE, PT TO START DIALYSIS TODAY. NEW ORDERS RECEIVED TO BE CARRIED OUT.
[2018-08-30] MEDS: SODIUM CHLORIDE 0.9% IV PRN ×3 (08:02→21:21)
[2018-08-30] MEDS: ROCURONIUM BROMIDE IV PRN ×3 (08:02→21:21)
--- NOTE | 2018-08-30 09:30 | NUR ---
TU CONJE GENERAL SALES MANAGER IN TO SEE PATIENT.
[2018-08-30] MEDS: FLUCONAZOLE 400 MG/NS 200 ML 200 ML IV SCH (09:52)
[2018-08-30] MEDS: ZOSYN 3.375GM+NS 50ML 50 ML IV SCH ×2 (09:52→21:11)
[2018-08-30] MEDS: HEPARIN SODIUM 5000UNIT/ML 1ML VIAL SQ SCH ×2 (09:54→21:19)
[2018-08-30] MEDS: ZINC OXIDE OINT 30GM TUBE TP SCH (13:11)
--- NOTE | 2018-08-30 14:33 | NUR ---
[facility] CONSULT PATIENT ASSESSED ORDERED: PATIENT PRESENTS WITH DTI MEASURING APPROXIMATELY 3x3.7x0cm, SKIN INTACT, NO DRAINAGE PRESENT; WILL CONTINUE TO OFFLOAD HEEL AND KEEP OPEN TO AIR. Addendum: 08/30/18 at 1436 by YOLANDA CHISHOLM LVN LVN W Amended: Links added.
--- NOTE | 2018-08-30 15:00 | NUR ---
DR. CARRERA PLACED TRIALYSIS CATHETER VIA LEFT IJ. CXR TO CONFIRM PLACEMENT. ONCE PLACED WILL CONTACT DIALYSIS NURSE.
--- NOTE | 2018-08-30 18:00 | NUR ---
SPOKE WITH GALE VIA TELEPHONE. INFORMED OF ORDER FOR DIALYSIS.
--- NOTE | 2018-08-30 20:00 | NUR ---
PARALYTIC AGENT INFUSING, TOF 1/4, PATIENT IN SYNCHRONY WITH THE VENT.
--- NOTE | 2018-08-30 20:00 | NUR ---
HEMODIALYSIS STARTED, PRE INITIAL EKG,CXR AND HD LABS COLLECTED AND SENT TO LAB.
[2018-08-30 20:30] LABS: HEMATOCRIT 22.7 % (36-48)
[2018-08-30 20:47] LABS: ALBUMIN 1.5 g/dL (3.5-5.0); CREATININE 3.5 mg/dL (0.5-1.5)
[2018-08-30 21:15] LABS: HEMOGLOBIN A1C 9.9 % (4.0-6.0)
[2018-08-30] MEDS: INSULIN GLARGINE 100 UNITS/ML 10 ML VIAL SQ SCH (21:19)
[2018-08-30] MEDS ORDERED: SODIUM CHLORIDE 0.9% 1000ML 1,000 ML IV PRN (21:30)
[2018-08-30] MEDS ORDERED: 0.9% SODIUM CHLORIDE 1000 ML IV BAG IV PRN (21:30)
[2018-08-30] MEDS ORDERED: NITROGLYCERIN 0.4 MG SL TAB SL PRN (21:30)
[2018-08-30] MEDS ORDERED: HEPARIN SODIUM 5000UNIT/ML 1ML VIAL IJ PRN (21:30)
[2018-08-30 21:35] LABS: % IRON SATURATION 46.2 % (22-44)
--- NOTE | 2018-08-30 22:00 | NUR ---
HEMODIALYSIS COMPLETED -2 HRS-2800 ML OUTPUT
[2018-08-31] VITALS (26 sets, daily range): BP systolic 118–164; BP diastolic 52–90
--- NOTE | 2018-08-31 | NUR ---
PARALYTIC AGENT INFUSING, TOF 1/4, PATIENT IN SYNCHRONY WITH THE VENT.
[2018-08-31] MEDS: METHYLPREDNISOLONE SOD SUCC 125MG/2ML VIAL IVP SCH ×5 (00:34→23:46)
[2018-08-31] MEDS: INSULIN HUMULIN R 100 UNIT/ML 3ML SQ SCH ×6 (00:35→20:33)
[2018-08-31] MEDS: FUROSEMIDE 10 MG/ML 4ML VIAL IV SCH ×2 (00:36→15:44)
[2018-08-31] MEDS: ALBUTEROL SULFATE 0.083% 2.5 MG/3 ML INH IH SCH ×6 (01:37→21:38)
[2018-08-31] MEDS: METOCLOPRAMIDE 10 MG/2 ML VIAL IVP SCH ×4 (02:50→20:04)
[2018-08-31] MEDS: SUCRALFATE 1 GM/10 ML PO SCH ×4 (02:51→20:33)
[2018-08-31] MEDS: ROCURONIUM BROMIDE IV PRN ×4 (03:19→23:49)
[2018-08-31] MEDS: SODIUM CHLORIDE 0.9% IV PRN ×4 (03:19→23:49)
[2018-08-31] MEDS: ARTIFICAL TEARS SOL 15 ML OU SCH ×3 (05:19→22:01)
[2018-08-31] MEDS: BUDESONIDE 0.5 MG/2 ML INH IH SCH ×2 (07:07→18:06)
[2018-08-31] MEDS: MIDAZOLAM 100MG-0.9% NS 100ML 100 ML IV PRN ×2 (07:41→21:56)
[2018-08-31] MEDS: FENTANYL 2500MCG+NS 250ML 250 ML IV PRN (07:41)
[2018-08-31] MEDS: ZOSYN 3.375GM+NS 50ML 50 ML IV SCH ×2 (08:56→20:33)
[2018-08-31] MEDS: FAMOTIDINE/PF 20 MG/2 ML VIAL IV SCH (08:56)
[2018-08-31] MEDS: HEPARIN SODIUM 5000UNIT/ML 1ML VIAL SQ SCH ×2 (09:13→20:35)
[2018-08-31] MEDS: ZINC OXIDE OINT 30GM TUBE TP SCH (09:16)
[2018-08-31] MEDS: FLUCONAZOLE 400 MG/NS 200 ML 200 ML IV SCH (10:46)
[2018-08-31] MEDS: INSULIN GLARGINE 100 UNITS/ML 10 ML VIAL SQ SCH (20:32)
[2018-09-01] VITALS (33 sets, daily range): BP systolic 123–220; BP diastolic 36–116
[2018-09-01] MEDS: FUROSEMIDE 10 MG/ML 4ML VIAL IV SCH ×2 (01:01→12:44)
[2018-09-01] MEDS: INSULIN HUMULIN R 100 UNIT/ML 3ML SQ SCH ×5 (01:01→17:29)
[2018-09-01] MEDS: ALBUTEROL SULFATE 0.083% 2.5 MG/3 ML INH IH SCH ×5 (01:41→18:57)
[2018-09-01] MEDS: METOCLOPRAMIDE 10 MG/2 ML VIAL IVP SCH ×4 (02:00→17:47)
[2018-09-01] MEDS: SUCRALFATE 1 GM/10 ML PO SCH ×3 (03:56→17:29)
[2018-09-01] MEDS: METHYLPREDNISOLONE SOD SUCC 125MG/2ML VIAL IVP SCH ×3 (06:31→17:47)
[2018-09-01] MEDS: ARTIFICAL TEARS SOL 15 ML OU SCH ×2 (06:32→13:01)
[2018-09-01] MEDS: BUDESONIDE 0.5 MG/2 ML INH IH SCH ×2 (07:01→18:57)
[2018-09-01] MEDS: SODIUM CHLORIDE 0.9% IV PRN ×3 (07:02→17:48)
[2018-09-01] MEDS: ROCURONIUM BROMIDE IV PRN ×3 (07:02→17:48)
--- NOTE | 2018-09-01 07:30 | NUR ---
MD ROUNDS DR. CARRERA IN TO SEE PATIENT. UPDATED ON STATUS. INFORMED PT REMAINS FULL CODE, FAMILY HAS NOT MADE A DECISION. NEW ORDERS RECEIVED TO BE CARRIED OUT. PT REMAINS ON PRVC MODE WITH PREVIOUS SETTINGS. SATURATIONS REMAIN 87% TO 90%. PT REMAINS ON PARALYTIC ROCURONIUM AT 3MCG/KG/MIN (18ML), FENTANYL 100MCG (ML) AND VERSED 8MG (8ML). TO4 1 TWITCH. TELE WITH SR 70s. TOLERATING FEEDING WELL GLUCERNA 40ML/HR WITH 200ML RESIDUALS. WILL CONT TO MONITOR CLOSELY.
[2018-09-01 08:22] LABS: ABG BASE EXCESS 2.6 mmol/L (-2.0-3.0); ABG HCO3 33.7 mmol/L (21.0-28.0); ABG OXYGEN SATURATION 75.6 % (95.0-99.0); ABG PCO2 86 mmHg (32-45)
--- NOTE | 2018-09-01 08:28 | NUR ---
ABG RESULTS REPORTED TO DR. CARRERA. NO CHANGES MADE.
[2018-09-01 08:35] LABS: HEMATOCRIT 23.6 % (36-48); MEAN CORPUSCULAR HEMOGLOBIN 28.5 pg (27.0-33.0); MEAN CORPUSCULAR VOLUME 86.4 fL (79-99); NUCLEATED RED BLOOD CELLS 0.5 % (0.0-0.19); PLATELET COUNT (AUTO) 177 K/uL (130-400); RED BLOOD CELL COUNT(AUTO) 2.74 MIL/uL (4.00-5.50); RED CELL DISTRIBUTION WIDTH 16.7 % (11.0-15.5); WHITE BLOOD COUNT (AUTO) 17.6 K/uL (4.8-10.8)
[2018-09-01] MEDS: ZOSYN 3.375GM+NS 50ML 50 ML IV SCH (09:21)
[2018-09-01] MEDS: FENTANYL 2500MCG+NS 250ML 250 ML IV PRN (09:22)
[2018-09-01] MEDS: MIDAZOLAM 100MG-0.9% NS 100ML 100 ML IV PRN (09:22)
[2018-09-01] MEDS: FLUCONAZOLE 400 MG/NS 200 ML 200 ML IV SCH (09:22)
[2018-09-01] MEDS: ZINC OXIDE OINT 30GM TUBE TP SCH (09:23)
[2018-09-01 09:34] LABS: CREATININE 2.8 mg/dL (0.5-1.5); POTASSIUM 4.6 mmol/L (3.5-5.1)
[2018-09-01] MEDS: HEPARIN SODIUM 5000UNIT/ML 1ML VIAL SQ SCH (09:46)
[2018-09-01] MEDS: FAMOTIDINE/PF 20 MG/2 ML VIAL IV SCH (10:48)
--- NOTE | 2018-09-01 15:30 | NUR ---
ROUNDS DR. ROTH IN TO SEE PATIENT. UPDATED ON STATUS. INFORMED HER I WAS DISCUSSING WITH PT'S SPOUSE DNR VS WITHDRAWAL ORDERS. PT'S SPOUSE MADE AWARE THAT PATIENT IS NOT IMPROVING. HE STATES HE WILL SPEAK WITH HIS CHILDREN REGARDING DNR.
[2018-09-01] MEDS ORDERED: NOREPINEPHRINE 4MG/NS 250ML IV SCH (18:30)
[2018-09-01] MEDS ORDERED: NOREPINEPHRINE 4MG/NS 250ML 250 ML IV SCH (18:45)
--- NOTE | 2018-09-01 19:08 | NUR ---
CPT was held at this time. Patient is not stable, SpO2 is in the upper 60's. Dakota Espinoza RN and Melissa RN are aware of patient's status.
[2018-09-01 19:34] LABS: ABG BASE EXCESS -8.1 mmol/L (-2.0-3.0); ABG HCO3 22.8 mmol/L (21.0-28.0); ABG OXYGEN SATURATION 75.4 % (95.0-99.0); ABG PCO2 86 mmHg (32-45)
--- NOTE | 2018-09-01 19:36 | NUR ---
CODE BLUE CALLED, PLEASE REFER TO FLOW SHEET. UNABLE TO OBTAIN A BLOOD PRESSURE, SATURATIONS DECREASING TO 50%, HEART RATE 40s. PATIENT WAS GIVEN 1 MG ATROPINE. STARTED ON DOPAMINE AT 8MCG, BP INCREASED TO SYSTOLIC 150s. DR. CARRERA MADE AWARE, ORDERS TO START ON NOREPINEPHRINE AND DISCONTINUE DOPAMINE. I SPOKE TO DR. PURVIS, PER ER PHYSICIAN RECOMMENDATIONS FOR STAT DIALYSIS. PER DR. PURVIS, PT WILL BE REEVALUATED TOMORROW, NO DIALYSIS TODAY. I SPOKE WITH RAINE MERCADO NP, UPDATED ON STATUS. NEW ORDERS RECEIVED TO BE CARRIED OUT. PT'S SPOUSE PRESENT. FAMILY HAS NOT DECIDED ON CODE STATUS R/T DNR. PT ENDORSED TO SILVER AGUIAR.
--- NOTE | 2018-09-01 19:44 | NUR ---
HR 51 AND DROPPING , NO PULSE , CODE BLUE INITIATED
[2018-09-01] MEDS ORDERED: VASOPRESSIN 20 UNITS/ML 1ML VIAL ONE (19:57)
[2018-09-01] MEDS ORDERED: VASOPRESSIN 20 UNITS in SODIUM CHLORIDE 0.9% 50 ML IV PRN (20:00)
--- NOTE | 2018-09-01 20:03 | NUR ---
DNR OBTAINED, SIGNED BY SPOUSE.
[2018-09-01] MEDS ORDERED: CALCIUM GLUCONATE 1 GM/10 ML VIAL IV ONE (20:15)
[2018-09-01] MEDS ORDERED: CALCIUM GLUCONATE 1 GM/10 ML VIAL IV SCH (20:15)
[2018-09-01] MEDS ORDERED: SODIUM BICARB 8.4% 50ML SYRINGE IVP SCH (20:15)
[2018-09-01] MEDS ORDERED: SODIUM BICARB 50MEQ 50ML VIAL ONE (20:16)
[2018-09-01] MEDS ORDERED: NOREPINEPHRINE BITARTRATE 8 MG/NS 250ML IV SCH ×2 (20:30)
--- NOTE | 2018-09-01 20:46 | NUR ---
Patient is now a DNR, family is at bedside and is aware of patient's status. Addendum: 09/01/18 at 2046 by RT KARAN RT Amended: Links added.
[2018-09-01] MEDS: ATROPINE SULFATE 0.1 MG/ML 10 ML SYG IVP PRN (21:16)
--- NOTE | 2018-09-01 23:16 | NUR ---
PRONOUNCEMENT BY COSME ALBERT. PRODUCE INSPECTOR. CHILDREN AND AT BEDSIDE
--- NOTE | 2018-09-01 23:16 | NUR ---
CALLED TO PRONOUNCE AMBRIZBIANCA ON 09/01/18 AT 2316. NO APICAL PULSE BY ASCULTATION WITH STETHESCOPE NOTED, NO RESPIRATONS NOTED AND NO PAPILLARY LIGHT REFLEXES BILATERALLY. PUPILS FIXED AND DIALATED. FAMILY AT BEDSIDE AND DR. IBRAHIM NOTIFIED [facility] FAMILY SON AND DAUGHTER WELL DECLINED AUTOPSY.
--- NOTE | 2018-09-01 23:16 | NUR ---
PATIENT REMOVED FROM VENT BY RT, PER MD ORDER.
[2018-09-03 08:14] LABS: HEPATITIS Bs ANTIGEN SCREEN P Negative (Negative)
[2018-09-04] MEDS ORDERED: EPOETIN ALFA 10,000 UNIT/ML VIAL SQ SCH (09:00)
== END 2018-09-01 23:16 | disposition expired | DRG 3 ==
LOC: EDH 14:00 → EDHIP 14:01 → 2BH 18:45
PROVIDERS: ADMIT Internal Medicine; ATTEND Internal Medicine
PROC: 5A1945Z Respiratory Ventilation, 24-96 Consecutive Hours (ICD-10-PCS; 2018-07-30)
PROC: 0BH17EZ Insertion of Endotracheal Airway into Trachea, Via Natural or Artificial Opening (ICD-10-PCS; 2018-07-30)
PROC: 0DJ08ZZ Inspection of Upper Intestinal Tract, Via Natural or Artificial Opening Endoscopic (ICD-10-PCS; 2018-08-02)
PROC: 5A1945Z Respiratory Ventilation, 24-96 Consecutive Hours (ICD-10-PCS; 2018-08-02)
PROC: 0B9K8ZZ Drainage of Right Lung, Via Natural or Artificial Opening Endoscopic (ICD-10-PCS; principal; 2018-08-03)
PROC: 5A09357 Assistance with Respiratory Ventilation, Less than 24 Consecutive Hours, Continuous Positive Airway Pressure (ICD-10-PCS; 2018-08-08)
PROC: 5A1935Z Respiratory Ventilation, Less than 24 Consecutive Hours (ICD-10-PCS; 2018-08-08)
PROC: 5A1945Z Respiratory Ventilation, 24-96 Consecutive Hours (ICD-10-PCS; 2018-08-09)
PROC: 5A1955Z Respiratory Ventilation, Greater than 96 Consecutive Hours (ICD-10-PCS; 2018-08-13)
PROC: 5A1945Z Respiratory Ventilation, 24-96 Consecutive Hours (ICD-10-PCS; 2018-08-13)
PROC: 0DH63UZ Insertion of Feeding Device into Stomach, Percutaneous Approach (ICD-10-PCS; 2018-08-17)
PROC: 0B110F4 Bypass Trachea to Cutaneous with Tracheostomy Device, Open Approach (ICD-10-PCS; 2018-08-19)
PROC: 02HV33Z Insertion of Infusion Device into Superior Vena Cava, Percutaneous Approach (ICD-10-PCS; 2018-08-24)
PROC: 5A1D70Z Performance of Urinary Filtration, Intermittent, Less than 6 Hours Per Day (ICD-10-PCS; 2018-08-30)
PROC: 5A1D70Z Performance of Urinary Filtration, Intermittent, Less than 6 Hours Per Day (ICD-10-PCS; 2018-08-31)
DX: T54.91XA Toxic effect of unspecified corrosive substance, accidental (unintentional), initial encounter (principal); A41.9 Sepsis, unspecified organism; J69.0 Pneumonitis due to inhalation of food and vomit; J96.21 Acute and chronic respiratory failure with hypoxia; N17.0 Acute kidney failure with tubular necrosis; N18.6 End stage renal disease; R65.21 Severe sepsis with septic shock; T28.6XXA Corrosion of esophagus, initial encounter; N39.0 Urinary tract infection, site not specified; G93.40 Encephalopathy, unspecified; E27.40 Unspecified adrenocortical insufficiency; E46 Unspecified protein-calorie malnutrition; Z68.42 Body mass index [BMI] 45.0-49.9, adult; E87.2 Acidosis; I13.11 Hypertensive heart and chronic kidney disease without heart failure, with stage 5 chronic kidney disease, or end stage renal disease; I70.92 Chronic total occlusion of artery of the extremities; I74.3 Embolism and thrombosis of arteries of the lower extremities; J90 Pleural effusion, not elsewhere classified; K56.7 Ileus, unspecified; I16.0 Hypertensive urgency; E87.5 Hyperkalemia; K29.00 Acute gastritis without bleeding; R13.10 Dysphagia, unspecified; E11.22 Type 2 diabetes mellitus with diabetic chronic kidney disease; E11.319 Type 2 diabetes mellitus with unspecified diabetic retinopathy without macular edema; E11.51 Type 2 diabetes mellitus with diabetic peripheral angiopathy without gangrene; E11.649 Type 2 diabetes mellitus with hypoglycemia without coma; E66.01 Morbid (severe) obesity due to excess calories; E78.2 Mixed hyperlipidemia; E87.6 Hypokalemia; E87.70 Fluid overload, unspecified; G47.33 Obstructive sleep apnea (adult) (pediatric); I70.202 Unspecified atherosclerosis of native arteries of extremities, left leg; J38.4 Edema of larynx; J40 Bronchitis, not specified as acute or chronic; K20.9 Esophagitis, unspecified; K59.03 Drug induced constipation; K76.0 Fatty (change of) liver, not elsewhere classified; R13.12 Dysphagia, oropharyngeal phase; T17.990A Other foreign object in respiratory tract, part unspecified in causing asphyxiation, initial encounter; T38.0X5A Adverse effect of glucocorticoids and synthetic analogues, initial encounter; T40.2X5A Adverse effect of other opioids, initial encounter; Z79.4 Long term (current) use of insulin; Z99.2 Dependence on renal dialysis; Z87.440 Personal history of urinary (tract) infections; Y92.89 Other specified places as the place of occurrence of the external cause; Z83.3 Family history of diabetes mellitus
CPT/HCPCS: 31500; 36415; 36600; 43235; 43246; 70450; 71045; 71275; 76700; 80048; 80053; 80061; 80202; 81001; 82040; 82435; 82565; 82728; 82803; 82947; 82948; 83036; 83540; 83550; 83605; 83735; 83880; 84100; 84132; 84145; 84295; 84520; 85014; 85018; 85025; 85027; 85610; 85730; 86701; 86704; 86706; 87040; 87071; 87077; 87088; 87186; 87205; 87340; 87390; 87520; 90935; 92950; 93005; 93306; 93926; 93970; 93971; 94002; 94003; 94640; 94660; 94664; 94667; 94668; A4357; A6234; C1751; C1894; G0378; J0330; J0360; J0461; J0610; J1100; J1200; J1265; J1450; J1644; J1815; J1940; J1956; J2020; J2185; J2250; J2543; J2704; J2765; J2920; J2930; J3010; J3370; J3475; J3480; J3490; J7030; J7040; J7070; J7120; Q9967